=== PATIENT | female | born 1975 | race Caucasian/White ===

== ENCOUNTER 2016-07-23 11:31 | Emergency (ER) | payer OTHER ==
--- NOTE | 2016-07-23 12:44 | DIAGNOSTIC IMAGING REPORT ---
PROCEDURE: XR CHEST 2 VIEW INDICATION: COUGH TECHNIQUE: PA and lateral views. COMPARISON: CT abdomen and pelvis 05/03/1962 FINDINGS: The right middle lobe infiltrate. Left lung is clear. Heart and mediastinum are normal. Thorax is normal. IMPRESSION: 1. Right middle lobe infiltrate
--- NOTE | 2016-07-23 13:15 | ED ORDER SUMMARY ---
..... Patient: EDNA FARRAR OrderSheet [facility] VisitID: [id number] [place] [address] 41y, F Registration Date/Time: 07/23/2016 ORDER SHEET Weight: 24.9 kg (stated) Allergies: No Known Drug Allergy GENERAL ORDERS: Chest 2V Urgent (11:49 07/23/2016 Rafael LU) (Ack 11:54 LTapper) (12:14 SRoberts R.N.) Rapid Influenza Screen (Nasal Pharyngeal) (swab) Urgent (11:49 07/23/2016 Rafael LU) (Ack 11:54 LTapper) (13:04 SRoberts R.N.) MEDICATION ORDERS: Rocephin IM 2 gm (NOW) (13:10 07/23/2016 Rafael LU) (Ack 13:15 SRoberts R.N.) (13:41 SRoberts R.N.) Zithromax PO 500 mg (NOW) (13:10 07/23/2016 Rafael LU) (Ack 13:15 SRoberts R.N.) (13:40 SRoberts R.N.) Toradol IM 60 mg (NOW) (13:10 07/23/2016 Rafael LU) (Ack 13:15 SRoberts R.N.) (13:40 SRoberts R.N.) IV FLUIDS: ORDER SHEET NOTES: [Electronically signed by Opal Carranza R.N. (14:04 07/23/2016)] [Electronically signed by Latricia dOom MD (05:31 07/29/2016)] [Electronically locked/signed by Opal Carranza R.N. (14:04 07/23/2016)]
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
--- NOTE | 2016-07-23 13:15 | ED ORDER SUMMARY ---
..... Patient: EDNA FARRAR OrderSheet [facility] VisitID: [id number] [place] [address] 41y, F Registration Date/Time: 07/23/2016 ORDER SHEET Weight: 24.9 kg (stated) Allergies: No Known Drug Allergy GENERAL ORDERS: Chest 2V Urgent (11:49 07/23/2016 Rafael LU) (Ack 11:54 LTapper) (12:14 SRoberts R.N.) Rapid Influenza Screen (Nasal Pharyngeal) (swab) Urgent (11:49 07/23/2016 Rafael LU) (Ack 11:54 LTapper) (13:04 SRoberts R.N.) MEDICATION ORDERS: Rocephin IM 2 gm (NOW) (13:10 07/23/2016 Rafael LU) (Ack 13:15 SRoberts R.N.) (13:41 SRoberts R.N.) Zithromax PO 500 mg (NOW) (13:10 07/23/2016 Rafael LU) (Ack 13:15 SRoberts R.N.) (13:40 SRoberts R.N.) Toradol IM 60 mg (NOW) (13:10 07/23/2016 Rafael LU) (Ack 13:15 SRoberts R.N.) (13:40 SRoberts R.N.) IV FLUIDS: ORDER SHEET NOTES: [Electronically signed by Opal Carranza R.N. (14:04 07/23/2016)] [Electronically signed by Latricia Odom MD (05:31 07/29/2016)] [Electronically locked/signed by Opal Carranza R.N. (14:04 07/23/2016)]
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
--- NOTE | 2016-07-29 05:32 | ED MAR SUMMARY ---
..... Medication Administration Record [facility] [address] [place] [address] [place] [address] Patient: EDNA FARRAR Visit ID: [id number] 41y, F Weight: 24.9 kg Height/Length: 70 in BMI: 7.9 ALLERGIES: No Known Drug Allergy Given 13:07/23/2016 Opal Carranza R.N. Medication Administered: ZITHROMAX [PO], Dose: 500 mg PO. Medication Ordered: Zithromax PO 500 mg (NOW). Given 13:07/23/2016 Opal Carranza R.N. Medication Administered: TORADOL [IM] (KETOROLAC TROMETHAMINE), Dose: 60 mg IM. Medication Ordered: Toradol IM 60 mg (NOW). Given 13:07/23/2016 Opal Carranza R.NZhane Medication Administered: ROCEPHIN [IM] (CEFTRIAXONE SODIUM), Dose: 2 gm IM. Medication Ordered: Rocephin IM 2 gm (NOW).
--- NOTE | 2016-07-29 05:32 | ED MAR SUMMARY ---
..... Medication Administration Record [facility] [address] [place] [address] Patient: EDNA FARRAR Visit ID: [id number] 41y, F Weight: 24.9 kg Height/Length: 70 in BMI: 7.9 ALLERGIES: No Known Drug Allergy Given 13:07/23/2016 Opal Carranza R.N. Medication Administered: ZITHROMAX [PO], Dose: 500 mg PO. Medication Ordered: Zithromax PO 500 mg (NOW). Given 13:07/23/2016 Opal Carranza R.N. Medication Administered: TORADOL [IM] (KETOROLAC TROMETHAMINE), Dose: 60 mg IM. Medication Ordered: Toradol IM 60 mg (NOW). Given 13:07/23/2016 Opal Carranza R.NZhane Medication Administered: ROCEPHIN [IM] (CEFTRIAXONE SODIUM), Dose: 2 gm IM. Medication Ordered: Rocephin IM 2 gm (NOW).
--- NOTE | 2016-07-29 05:32 | ED DISCHARGE INSTRUCTIONS ---
Patient: EDNA FARRAR General Instructions [facility] VisitID: [id number] [place] [address] 41y, F Registration Date/Time: 07/23/2016 Bacterial pneumonia. Vital signs recorded and reviewed; empiric antibiotics given in the ED. No hypoxemia, respiratory failure or sepsis. Single contusion to the left posterior chest. INSTRUCTIONS Drink plenty of fluids. (Your influenza test is negative, but your chest x-ray shows a small area of pneumonia on the right. Your ribs are not broken.). Warnings: GENERAL WARNINGS: Return or contact your physician immediately if your condition worsens or changes unexpectedly, if not improving as expected, or if other problems arise. Your Current Medications: CONTINUE TAKING THE FOLLOWING MEDICATIONS: Citalopram Hydrobromide Oral : Tablet 40 mg. ClonazePAM Oral : Tablet 1 mg, 1 tablet 2x a day. Fluticasone Propionate Nasal : Suspension 50 mcg/act, 2 sprays. Gabapentin Oral : Capsule 400 mg, 1 capsule daily. LamoTRIgine Oral : Tablet Dispersible 200 mg, 1 tablet. TraZODone HCl Oral : Tablet 100 mg, 1 tablet daily. Prescription Medications: Hydrocodone/APAP 5mg / 325mg: take 1-2 orally every 6 hours as needed for pain. Dispense ten (10). No refill. Zithromax Z-Rodney: Take according to package instructions 2 orally today, followed by 1 orally every day for the next 4 days. Total course 5 days. No refills. Substitution is permissible. Follow-up: Follow up with your doctor as needed. Understanding of the discharge instructions verbalized by patient. ADDITIONAL INFORMATION Pneumonia (Adult) Pneumonia is an infection deep within the lung, in the small air sacs (alveoli). It may be due to a virus or bacteria and is usually treated with an antibiotic. Severe cases require treatment in the hospital. Milder cases can be treated at home. Symptoms usually start to improve during the first2 days of treatment. Home Care: Rest at home for the first 23 days or until you feel stronger. When resuming activity, dont let yourself become overly tired. Avoid exposure to cigarette smoke (yours or others). You may use acetaminophen (Tylenol) or ibuprofen (Motrin, Advil) to control fever or pain, unless another medicine was prescribed. [NOTE: If you have chronic liver or kidney disease or ever had a stomach ulcer or GI bleeding, talk with your doctor before using these medicines.] (Aspirin should never be used in anyone under 18 years of age who is ill with a fever. It may cause severe liver damage.) Your appetite may be poor so a light diet is fine. Keep well hydrated by drinking 68 glasses of fluids per day (water, sport drinks such as Gatorade, sodas without caffeine, juices, tea, soup, etc.). This will help loosen secretions in the lung, making it easier for you to cough up the phlegm (sputum). If you also have heart or kidney disease, check with your doctor before you drink extra amounts of fluids. Finish all antibiotic medicine prescribed, even if you are feeling better after a few days. Follow Up with your doctor in the next 23 days (or as advised) to be sure you are responding properly to the medicine. [NOTE: If you are age 65 or older, or if you have chronic lung disease (asthma, emphysema or COPD), we recommendthe pneumococcal vaccination and a yearlyinfluenzavaccination(flu-shot) every . Ask your doctor about this.] Get Prompt Medical Attention if any of the following occur: Not getting better within the first 48 hours of treatment Increasing shortness of breath or rapid breathing (over 25 breaths/minute) Coughing up blood or increasing chest pain with breathing Fever of 100.4F (38C) oral or higher, not better with fever medication Increasing weakness, dizziness or fainting Increasing thirst or dry mouth Sinus pain, headache or a stiff neck Chest pain not caused by coughing Chest Contusion Acontusion is a bruise to the skin, muscle or ribs. It may cause pain, tenderness, swelling and a purplish discoloration. Contusions take a few days to a few weeks to heal. Home Care: Rest. You should not be doing any heavy lifting or strenuous exertion, or any activity that causes pain. You may use acetaminophen (Tylenol) or ibuprofen (Motrin, Advil) to control pain, unless another pain medicine was prescribed. [ NOTE: If you have chronic liver or kidney disease or ever had a stomach ulcer or GI bleeding, talk with your doctor before using these medicines.] Follow Up with your doctor during the next week or as directed. Get Prompt Medical Attention if any of the following occur: Shortness of breath Increasing chest pain with breathing Dizziness, weakness or fainting New or worsening of abdominal pain Fever of 100.4F (38C) or higher, or as directed by your healthcare provider You have been given the following additional information: Pneumonia (Adult) Chest Wall Contusion (Electronically signed by Latricia Odom MD 07/29/2016 5:31)
--- NOTE | 2016-07-29 05:32 | ED MED RECONCILIATION SUMMARY ---
Patient: EDNA FARRAR Medication Reconciliation Report [facility] VisitID: [id number] [place] [address] 41y, F Registration Date/Time: 07/23/2016 Weight: 24.9 kg Height/Length: 70 in. BMI: 7.9 ALLERGIES: No Known Drug Allergy The patient's Home Medications are listed below: CONTINUE TAKING THE FOLLOWING MEDICATIONS: Citalopram Hydrobromide Oral (40 mg) ClonazePAM Oral (1 mg) 1 tablet, 2x a day Fluticasone Propionate Nasal (50 mcg/act) 2 sprays Gabapentin Oral (400 mg) 1 capsule, daily LamoTRIgine Oral (200 mg) 1 tablet TraZODone HCl Oral (100 mg) 1 tablet, daily The source(s) of the original Home Medication information: patient The following Medications were given to the patient in the Emergency Department: Zithromax [PO] PO 500 mg, administered: 07/23/2016 1:30:00 PM Toradol [IM] IM 60 mg, administered: 07/23/2016 1:30:00 PM Rocephin [IM] IM 2 gm, administered: 07/23/2016 1:36:00 PM The following Medications were prescribed to the patient: Hydrocodone/APAP 5mg / 325mg: take 1-2 orally every 6 hours as needed for pain. Dispense ten (10). No refill. -- Latricia Odom MD Zithromax Z-Rodney: Take according to package instructions 2 orally today, followed by 1 orally every day for the next 4 days. Total course 5 days. No refills. Substitution is permissible. -- Latricia Odom MD
--- NOTE | 2016-07-29 05:32 | ED MED RECONCILIATION SUMMARY ---
Patient: EDNA FARRAR Medication Reconciliation Report [facility] VisitID: [id number] [place] [address] 41y, F Registration Date/Time: 07/23/2016 Weight: 24.9 kg Height/Length: 70 in. BMI: 7.9 ALLERGIES: No Known Drug Allergy The patient's Home Medications are listed below: CONTINUE TAKING THE FOLLOWING MEDICATIONS: Citalopram Hydrobromide Oral (40 mg) ClonazePAM Oral (1 mg) 1 tablet, 2x a day Fluticasone Propionate Nasal (50 mcg/act) 2 sprays Gabapentin Oral (400 mg) 1 capsule, daily LamoTRIgine Oral (200 mg) 1 tablet TraZODone HCl Oral (100 mg) 1 tablet, daily The source(s) of the original Home Medication information: patient The following Medications were given to the patient in the Emergency Department: Zithromax [PO] PO 500 mg, administered: 07/23/2016 1:30:00 PM Toradol [IM] IM 60 mg, administered: 07/23/2016 1:30:00 PM Rocephin [IM] IM 2 gm, administered: 07/23/2016 1:36:00 PM The following Medications were prescribed to the patient: Hydrocodone/APAP 5mg / 325mg: take 1-2 orally every 6 hours as needed for pain. Dispense ten (10). No refill. -- Latricia Odom MD Zithromax Z-Rodney: Take according to package instructions 2 orally today, followed by 1 orally every day for the next 4 days. Total course 5 days. No refills. Substitution is permissible. -- Latricia Odom MD
== END 2016-07-23 13:35 | disposition home or self-care (01) ==
LOC: ED SRH 11:31
DX: J15.9 Unspecified bacterial pneumonia (principal); S20.212A Contusion of left front wall of thorax, initial encounter; X50.9XXA Other and unspecified overexertion or strenuous movements or postures, initial encounter; Y93.9 Activity, unspecified; Y92.9 Unspecified place or not applicable; Y99.9 Unspecified external cause status; Z79.899 Other long term (current) drug therapy
CPT/HCPCS: 91400

== ENCOUNTER 2016-09-04 14:38 | Emergency (ER) | payer OTHER ==
--- NOTE | 2016-09-04 16:50 | ED CLINICAL REPORT ---
Clinical Report - Physicians/Mid Levels [facility] [address] [place] [address] 09/04/2016 14:39 [id number] Time Seen: 15:10 Sep 04 2016. Arrived- By private vehicle. Historian- patient. HISTORY OF PRESENT ILLNESS Chief Complaint: ABDOMINAL PAIN. This started 7 days WARE TESTER and is still present. It is described as "pain" and it is described as located in the lower abdomen. No nausea, loss of appetite, vomiting or diarrhea. (patient reports abdominal pain at the site of her previous incision for hysterectomy and bilateral ovarian excision, patient reports no trauma. Denies any fevers or chills. NO diarrhea, no emesis. No urinary sx.). No recent travel. REVIEW OF SYSTEMS No constipation, black stools, hematemesis, difficulty with urination or pain with urination. No fever, headache, blurred vision or chills. All systems otherwise negative, except as recorded above. PAST HISTORY No history of bowel obstruction. Problems: Contusion. Pneumonia. Lumbar Strain. Urinary Incontinence. Fatigue. Low back pain associated with a spinal disorder other than radiculopathy or spinal stenosis. Chronic maxillary sinusitis. Alcohol Intoxication. Medical Screening Exam. Additional Surgeries: Breast Augmentation. Hysterectomy. Tonsillectomy. Medications: Zoloft Oral 25 mg, daily. ClonazePAM Oral (Tablet 1 mg) 1 tablet, 2x a day. Gabapentin Oral (Capsule 400 mg) 1 capsule, daily. TraZODone HCl Oral (Tablet 100 mg) 1 tablet, daily. Allergies: Codeine.(hives, itching). SOCIAL HISTORY Smoker- current status unknown. No alcohol use. ADDITIONAL NOTES The nursing notes have been reviewed. PHYSICAL EXAM Vital Signs: 09/04/2016 14:45 BP: 99/62. HR: 73. RR: 16. O2 saturation: 96%. Temp: 97.9 F. Pain level now: 8/10. Appearance: Alert. No acute distress. Eyes: Eyes normal inspection. No conjunctival findings or scleral icterus. ENT: Ears normal. Nose normal. Neck: Normal inspection. CVS: Normal heart rate and rhythm. Heart sounds normal. Respiratory: No respiratory distress. Breath sounds normal. No accessory muscle use or decreased air movement. Abdomen: Soft. Tenderness. No mass. Single scar present in the lower abdomen. Compatible with prior hysterectomy. The bowel sounds are not abnormal. No distention, mass present or guarding. Neuro: Oriented X 3. No motor deficit. LABS, X-RAYS, AND EKG Laboratory Tests: UA-Culture if indicated: (FRANCK: 09/04/2016 16:10) ( [facility] 09/04/2016 16:49) Final results Test Result Flag Units (Reference) URINE COLOR YELLOW URINE APPEARANCE CLEAR URINE GLUCOSE NEGATIVE (NEGATIVE) URINE BILIRUBIN NEGATIVE (NEGATIVE) URINE KETONE NEGATIVE (NEGATIVE) URINE SPECIFIC GRAVITY 1.015 (1.010-1.030) URINE PH 7.0 (5.0-8.0) URINE PROTEIN NEGATIVE (NEGATIVE) URINE UROBILINOGEN 0.2 EU/dL (0.2-1.0) URINE NITRITE NEGATIVE (NEGATIVE) URINE BLOOD NEGATIVE (NEGATIVE) URINE LEUK ESTERASE TRACE (NEGATIVE) URINE RBC NONE SEEN rbc/hpf (0-1) URINE WBC 3-5 wbc/hpf (0-1) URINE EPITHELIAL CELLS 3-5 EPI/hpf (0-5) URINE BACTERIA FEW (1+) (NONE SEEN) URINE COMMENT CULTURE INDICATED URINE CULTURES ARE SET-UP BASED ON THE FOLLOWING CRITERIA:POSITIVE NITRITEPOSITIVE LEUKOCYTE ESTERASEGREATER THAN 10 WHITE BLOOD CELLSMODERATE (2+) OR GREATER BACTERIA CBC w Diff: (FRANCK: 09/04/2016 15:16) ( [facility] [place] 09/04/2016 15:34) Final results Test Result Flag Units (Reference) WHITE BLOOD COUNT 6.5 K/uL (4.5-11.5) RED BLOOD COUNT 3.75 L M/uL (4.00-5.20) HEMOGLOBIN 12.1 gm/dL (12.0-16.0) HEMATOCRIT 36.2 % (36.0-46.0) MEAN CELL VOLUME 97 fL (80-100) MEAN CORPUSCULAR HGB 32 pg (26-34) MEAN CORPUSCULAR HGB CONC 34 g/dL (31-37) RED CELL DISTRIBUTION WIDTH 13.7 % (11.6-14.8) PLATELET COUNT 139 L K/uL (150-400) NEUTROPHIL % 58.3 % (50-75) LYMPH % 27.9 % (25-40) MONO % 5.5 % (3-14) EOSINOPHIL % 7.5 H % (0-4) BASOPHIL % 0.8 % (0-2) CMP: (FRANCK: 09/04/2016 15:16) ( [facility] 09/04/2016 16:01) Final results Test Result Flag Units (Reference) GLUCOSE 100 mg/dL (70-110) BUN 11 mg/dL (7-18) CREATININE 1.0 mg/dL (0.6-1.3) Estimated GFR >60 mL/min Estimated GFR- >60 mL/min Note: Persistent reduction over 3 months in eGFR<60 mL/min/1.73 m2 defines CKD. Patients with eGFR values>=60 mL/min/1.73 m2 may also have CKD if evidence ofpersistent proteinuria. Additional information may be foundat www.kidney.org. SODIUM 141 mmol/L (136-145) POTASSIUM 4.0 mmol/L (3.5-5.1) CHLORIDE 106 mmol/L (98-107) CARBON DIOXIDE 30 mmol/L (21-32) CALCIUM 8.6 mg/dL (8.5-10.1) TOTAL PROTEIN 5.9 L g/dL (6.4-8.2) ALBUMIN 3.4 g/dL (3.3-5.0) BILIRUBIN, TOTAL 0.2 mg/dL (0.0-1.0) ALKALINE PHOSPHATASE 74 U/L (46-116) AST (SGOT) 14 L U/L (15-37) ALT (SGPT) 18 U/L (12-78) . Note - Tests: (KUB: nad). PROGRESS AND PROCEDURES Course of Care: No emesis/ diarrhea. No signs of acute surgical abdomen. During the time in the ED, the following DDX were considered: acute surgical abdomen, hemodynamic or metabolic instability, dehydration, gastroenteritis-viral, food borne, or bacterial, food intolerance, irritable or inflammatory bowel, infection, sepsis. 09/04/2016 14:45 BP: 99/62. HR: 73. RR: 16. O2 saturation: 96%. Temp: 97.9 F. Pain level now: 8/10. Patient is stable. Symptoms better. Patient/family counseled. Differential Diagnosis: I considered gastritis, gastroenteritis, acute appendicitis, diverticulitis, small bowel obstruction, biliary colic, cholecystitis, hepatitis, splenic injury, splenic rupture, intraabdominal abscess, urinary tract infection, cystitis, ovarian cyst, pelvic inflammatory disease, pelvic abscess, abdominal aortic aneurysm, myocardial infarction and diabetic ketoacidosis as a possible cause of abdominal pain in this patient. This is a partial list of diagnoses considered. Disposition: Discharged. CLINICAL IMPRESSION Acute abdominal pain of unknown cause. INSTRUCTIONS Drink plenty of fluids. (please estabish PCP: [place] [address] ). Prescription Medications: Hydrocodone/APAP 5mg / 325mg: take 1 orally every 6 hours as needed for pain. Dispense ten (10). No refill. Follow-up with: Charlee Faustin MD, Family Practice, , [facility], [address] [place] [address] Follow up. Call for the next available appointment. (Electronically signed by Libby Dhillon P.A.-C 09/04/2016 17:20)
--- NOTE | 2016-09-04 16:50 | ED CLINICAL REPORT ---
Clinical Report - Physicians/Mid Levels [facility] [address] [place] [address] 09/04/2016 14:39 [id number] Time Seen: 15:10 Sep 04 2016. Arrived- By private vehicle. Historian- patient. HISTORY OF PRESENT ILLNESS Chief Complaint: ABDOMINAL PAIN. This started 7 days AGENT BROKER and is still present. It is described as "pain" and it is described as located in the lower abdomen. No nausea, loss of appetite, vomiting or diarrhea. (patient reports abdominal pain at the site of her previous incision for hysterectomy and bilateral ovarian excision, patient reports no trauma. Denies any fevers or chills. NO diarrhea, no emesis. No urinary sx.). No recent travel. REVIEW OF SYSTEMS No constipation, black stools, hematemesis, difficulty with urination or pain with urination. No fever, headache, blurred vision or chills. All systems otherwise negative, except as recorded above. PAST HISTORY No history of bowel obstruction. Problems: Contusion. Pneumonia. Lumbar Strain. Urinary Incontinence. Fatigue. Low back pain associated with a spinal disorder other than radiculopathy or spinal stenosis. Chronic maxillary sinusitis. Alcohol Intoxication. Medical Screening Exam. Additional Surgeries: Breast Augmentation. Hysterectomy. Tonsillectomy. Medications: Zoloft Oral 25 mg, daily. ClonazePAM Oral (Tablet 1 mg) 1 tablet, 2x a day. Gabapentin Oral (Capsule 400 mg) 1 capsule, daily. TraZODone HCl Oral (Tablet 100 mg) 1 tablet, daily. Allergies: Codeine.(hives, itching). SOCIAL HISTORY Smoker- current status unknown. No alcohol use. ADDITIONAL NOTES The nursing notes have been reviewed. PHYSICAL EXAM Vital Signs: 09/04/2016 14:45 BP: 99/62. HR: 73. RR: 16. O2 saturation: 96%. Temp: 97.9 F. Pain level now: 8/10. Appearance: Alert. No acute distress. Eyes: Eyes normal inspection. No conjunctival findings or scleral icterus. ENT: Ears normal. Nose normal. Neck: Normal inspection. CVS: Normal heart rate and rhythm. Heart sounds normal. Respiratory: No respiratory distress. Breath sounds normal. No accessory muscle use or decreased air movement. Abdomen: Soft. Tenderness. No mass. Single scar present in the lower abdomen. Compatible with prior hysterectomy. The bowel sounds are not abnormal. No distention, mass present or guarding. Neuro: Oriented X 3. No motor deficit. LABS, X-RAYS, AND EKG Laboratory Tests: UA-Culture if indicated: (FRANCK: 09/04/2016 16:10) ( [facility] [place] 09/04/2016 16:49) Final results Test Result Flag Units (Reference) URINE COLOR YELLOW URINE APPEARANCE CLEAR URINE GLUCOSE NEGATIVE (NEGATIVE) URINE BILIRUBIN NEGATIVE (NEGATIVE) URINE KETONE NEGATIVE (NEGATIVE) URINE SPECIFIC GRAVITY 1.015 (1.010-1.030) URINE PH 7.0 (5.0-8.0) URINE PROTEIN NEGATIVE (NEGATIVE) URINE UROBILINOGEN 0.2 EU/dL (0.2-1.0) URINE NITRITE NEGATIVE (NEGATIVE) URINE BLOOD NEGATIVE (NEGATIVE) URINE LEUK ESTERASE TRACE (NEGATIVE) URINE RBC NONE SEEN rbc/hpf (0-1) URINE WBC 3-5 wbc/hpf (0-1) URINE EPITHELIAL CELLS 3-5 EPI/hpf (0-5) URINE BACTERIA FEW (1+) (NONE SEEN) URINE COMMENT CULTURE INDICATED URINE CULTURES ARE SET-UP BASED ON THE FOLLOWING CRITERIA:POSITIVE NITRITEPOSITIVE LEUKOCYTE ESTERASEGREATER THAN 10 WHITE BLOOD CELLSMODERATE (2+) OR GREATER BACTERIA CBC w Diff: (FRANCK: 09/04/2016 15:16) ( [facility] [place] [place] 09/04/2016 15:34) Final results Test Result Flag Units (Reference) WHITE BLOOD COUNT 6.5 K/uL (4.5-11.5) RED BLOOD COUNT 3.75 L M/uL (4.00-5.20) HEMOGLOBIN 12.1 gm/dL (12.0-16.0) HEMATOCRIT 36.2 % (36.0-46.0) MEAN CELL VOLUME 97 fL (80-100) MEAN CORPUSCULAR HGB 32 pg (26-34) MEAN CORPUSCULAR HGB CONC 34 g/dL (31-37) RED CELL DISTRIBUTION WIDTH 13.7 % (11.6-14.8) PLATELET COUNT 139 L K/uL (150-400) NEUTROPHIL % 58.3 % (50-75) LYMPH % 27.9 % (25-40) MONO % 5.5 % (3-14) EOSINOPHIL % 7.5 H % (0-4) BASOPHIL % 0.8 % (0-2) CMP: (FRANCK: 09/04/2016 15:16) ( MsgRcvd 09/04/2016 16:01) Final results Test Result Flag Units (Reference) GLUCOSE 100 mg/dL (70-110) BUN 11 mg/dL (7-18) CREATININE 1.0 mg/dL (0.6-1.3) Estimated GFR >60 mL/min Estimated GFR- >60 mL/min Note: Persistent reduction over 3 months in eGFR<60 mL/min/1.73 m2 defines CKD. Patients with eGFR values>=60 mL/min/1.73 m2 may also have CKD if evidence ofpersistent proteinuria. Additional information may be foundat www.kidney.org. SODIUM 141 mmol/L (136-145) POTASSIUM 4.0 mmol/L (3.5-5.1) CHLORIDE 106 mmol/L (98-107) CARBON DIOXIDE 30 mmol/L (21-32) CALCIUM 8.6 mg/dL (8.5-10.1) TOTAL PROTEIN 5.9 L g/dL (6.4-8.2) ALBUMIN 3.4 g/dL (3.3-5.0) BILIRUBIN, TOTAL 0.2 mg/dL (0.0-1.0) ALKALINE PHOSPHATASE 74 U/L (46-116) AST (SGOT) 14 L U/L (15-37) ALT (SGPT) 18 U/L (12-78) . Note - Tests: (KUB: nad). PROGRESS AND PROCEDURES Course of Care: No emesis/ diarrhea. No signs of acute surgical abdomen. During the time in the ED, the following DDX were considered: acute surgical abdomen, hemodynamic or metabolic instability, dehydration, gastroenteritis-viral, food borne, or bacterial, food intolerance, irritable or inflammatory bowel, infection, sepsis. 09/04/2016 14:45 BP: 99/62. HR: 73. RR: 16. O2 saturation: 96%. Temp: 97.9 F. Pain level now: 8/10. Patient is stable. Symptoms better. Patient/family counseled. Differential Diagnosis: I considered gastritis, gastroenteritis, acute appendicitis, diverticulitis, small bowel obstruction, biliary colic, cholecystitis, hepatitis, splenic injury, splenic rupture, intraabdominal abscess, urinary tract infection, cystitis, ovarian cyst, pelvic inflammatory disease, pelvic abscess, abdominal aortic aneurysm, myocardial infarction and diabetic ketoacidosis as a possible cause of abdominal pain in this patient. This is a partial list of diagnoses considered. Disposition: Discharged. CLINICAL IMPRESSION Acute abdominal pain of unknown cause. INSTRUCTIONS Drink plenty of fluids. (please estabish PCP: [place] [address] ). Prescription Medications: Hydrocodone/APAP 5mg / 325mg: take 1 orally every 6 hours as needed for pain. Dispense ten (10). No refill. Follow-up with: Charlee Faustin MD, Family Practice, , [facility], [address] [place] [address] Follow up. Call for the next available appointment. (Electronically signed by Libby Dhillon P.A.-C 09/04/2016 17:20)
--- NOTE | 2016-09-04 16:50 | ED ORDER SUMMARY ---
..... Patient: EDNA FARRAR OrderSheet [facility] VisitID: [id number] [place] [address] 41y, F Registration Date/Time: 09/04/2016 ORDER SHEET Weight: 68.0 kg (stated) Allergies: Codeine GENERAL ORDERS: CBC w Diff Urgent (14:57 09/04/2016 EKoroleva P.A.-C) (Ack 15:04 LTapper) (15:20 JRomanelli R.N.) CMP Urgent (14:57 09/04/2016 EKoroleva P.A.-C) (Ack 15:04 LTapper) (15:20 JRomanelli R.N.) UA-Culture if indicated Urgent (14:57 09/04/2016 EKoroleva P.A.-C) (Ack 15:04 LTapper) (20:24 JRomanelli R.N.) Abdomen 1V Upright Urgent (16:29 09/04/2016 EKoroleva P.A.-C) (Ack 16:43 LTapper) (20:24 JRomanelli R.N.) MEDICATION ORDERS: Hydrocodone-APAP PO 5/325 mg (NOW, HIGH ALERT MEDICATION) (14:57 09/04/2016 EKoroleva P.A.-C) (15:20 JRomanelli R.N.) IV FLUIDS: ORDER SHEET NOTES: [Electronically signed by Libby DhillonAZhane-Ruddy (17:20 09/04/2016)] [Electronically signed by Matthew Rich R.N. (20:25 09/04/2016)] [Electronically locked/signed by Matthew Rich R.N. (20:25 09/04/2016)]
--- NOTE | 2016-09-04 16:50 | ED ORDER SUMMARY ---
..... Patient: EDNA FARRAR OrderSheet [facility] VisitID: [id number] [place] [address] 41y, F Registration Date/Time: 09/04/2016 ORDER SHEET Weight: 68.0 kg (stated) Allergies: Codeine GENERAL ORDERS: CBC w Diff Urgent (14:57 09/04/2016 EKoroleva P.A.-C) (Ack 15:04 LTapper) (15:20 JRomanelli R.N.) CMP Urgent (14:57 09/04/2016 EKoroleva P.A.-C) (Ack 15:04 LTapper) (15:20 JRomanelli R.N.) UA-Culture if indicated Urgent (14:57 09/04/2016 EKoroleva P.A.-C) (Ack 15:04 LTapper) (20:24 JRomanelli R.N.) Abdomen 1V Upright Urgent (16:29 09/04/2016 EKoroleva P.A.-C) (Ack 16:43 LTapper) (20:24 JRomanelli R.N.) MEDICATION ORDERS: Hydrocodone-APAP PO 5/325 mg (NOW, HIGH ALERT MEDICATION) (14:57 09/04/2016 EKoroleva P.A.-C) (15:20 JRomanelli R.N.) IV FLUIDS: ORDER SHEET NOTES: [Electronically signed by Libby DhillonAZhane-Ruddy (17:20 09/04/2016)] [Electronically signed by Matthew Rich R.N. (20:25 09/04/2016)] [Electronically locked/signed by Matthew Rich R.N. (20:25 09/04/2016)]
--- NOTE | 2016-09-04 16:50 | ED NURSING NOTES ---
Clinical Report - Nurses [facility] [address] [place] [address] 09/04/2016 14:39 Patient: EDNA FARRAR [facility]#: [id number] TRIAGE Triage time 14:45 Sep 04 2016. Acuity: LEVEL 3. Chief Complaint: ABDOMINAL PAIN. Alert. GERMAINE COMA SCORE: [place] Coma Scale: 15- eyes open spontaneously (4); best verbal response- oriented x 4 (5); best motor response- obeys commands (6). --15:29 Matthew Rich R.N. 14:45 09/04/16. BP: 99/62. HR: 73. RR: 16. O2 saturation: 96% on room air. Temp: 97.9 F. Pain level now: 8/10. Additional comments: Abdomen pain. --15:33 Matthew Rich R.N. Weight: 68 kg stated. Height/Length: 70 inches Per Patient. BMI: 21.5. --14:48 Matthew Rich R.N. Medications ClonazePAM Oral (Tablet 1 mg) 1 tablet, 2x a day. Gabapentin Oral (Capsule 400 mg) 1 capsule, daily. TraZODone HCl Oral (Tablet 100 mg) 1 tablet, daily. --14:51 Matthew Rich R.N. Zoloft Oral 25 mg, daily. --14:51 Matthew Rich R.N. Allergies Codeine.(hives, itching) --14:51 Matthew Rich R.N. History Arrived by private vehicle. Historian: patient. Accompanied by mother. Primary physician (none). ( Abdominal Pain underneath a surgical scar from an old Hysterectomy associated with nausea because of the pain.). Onset. (about 7 days ago). 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 Symptoms did not improve after treatment. --15:29 Matthew Rich R.N. PAST MEDICAL HX: Immunizations: status is unknown. The patient has had a hysterectomy. SOCIAL HX: Heavy tobacco smoker (cigarette)- 1 pack per day. No alcohol use or drug use. Recent travel. No infectious disease exposure. ABUSE ASSESSMENT: No report of abuse. FALL RISK ASSESSMENT: Fall risk assessment completed. No fall risk identified. NUTRITIONAL RISK ASSESSMENT: The nutritional risk assessment revealed no deficiencies. FUNCTIONAL ASSESSMENT: Functional assessment: no impairments noted. LEARNING NEEDS ASSESSMENT: The learning needs assessment revealed no barriers. SKIN INTEGRITY ASSESSMENT: Skin integrity risk assessment completed. No skin integrity risk identified. --15:34 Matthew Rich R.N. PROBLEMS: Contusion. Pneumonia. Lumbar Strain. Urinary Incontinence. Fatigue. Chronic maxillary sinusitis. Alcohol Intoxication. Medical Screening Exam. --14:52 Matthew Rich R.N. ADDITIONAL SURGERIES: Breast Augmentation. Hysterectomy. Tonsillectomy. --14:52 Matthew Rich R.N. Interventions ID band on patient. To treatment room. --15:29 Matthew Rich R.N. PHYSICAL ASSESSMENT Ambulatory to room. GENERAL / NEURO / PSYCH: Alert. Oriented X 4. HEENT: Mucous membranes are pink. RESPIRATORY: Respirations not labored. CVS: Cardiac rhythm: (RRR). Capillary refill less than 2 seconds. GI / : Abdomen soft. Abdominal tenderness in the suprapubic area. SKIN: Skin is warm and dry. --14:55 Matthew Rich R.N. NURSING PROGRESS NOTES Patient gowned. Reassurance given to the patient and parent(s). Patient identifiers checked. Call light placed in reach. Side rails up x 1. Bed placed in lowest position. Brakes of bed on. Patient ready for evaluation- chart flagged and ED physician notified. --14:55 Matthew Rich R.N. 15:15 09/04/2016 Hydrocodone-APAP (Hydrocodone-Acetaminophen) PO 5/325 mg Tablets 1 tab given. Allergies verified, confirmed 5 rights and sedative warning given to the patient and patient's family. --15:20 Matthew Rich R.N. 16:35 09/04/16. Patient ID band checked for patient name, birthdate and medical record number: patient confirmed. Instructions provided to collect clean catch urine and patient verbalized understanding. Clean catch urine collected with return of yellow-colored clear urine; odor is normal; sample sent to lab for urinalysis, culture and drug screen. Specimen labeled in the presence of the patient. --16:52 Matthew Rich R.N. <<SIAKEN ENTRY-- 15:00. ( Ice pack placed on pt's (R) foot). --16:54 Matthew Rich R.N. --END STRIKE>> Correction --16:58 Matthew Rich R.N. DISPOSITION / DISCHARGE Departure time: 1700. --20:15 Matthew Rich R.N. <<STRICKEN ENTRY-- 20:15 09/04/16. BP: 96/58. HR: 66. RR: 16. O2 saturation: 98% on room air. Temp: 98.2 F. Pain level now: 11/03. --20:19 Matthew Rich R.N. --END STRIKE>> Correction. --20:20 Matthew Rich R.N. --20:23 Matthew Rich R.N. 16:55 09/04/16. BP: 96/58. HR: 66. RR: 16. O2 saturation: 98% on room air. Temp: 98.2 F (oral). Pain level now: 11/03. Additional comments: Abdominal pain. --20:23 Matthew Rich R.N. 17:00. Condition at departure: improved. No learning barriers present. Discharge instructions provided and reviewed with the patient. Reviewed medication(s) (prescription given to pt). Reviewed referral to family practice for followup. Patient verbalized understanding. Written instructions provided in Japanese. The patient was discharged by the physician. She was discharged home and accompanied by parent. She left the Emergency Department ambulatory and via private vehicle. Parent driving. --20:24 Matthew Rich R.N. Locked/Released at 09/04/2016 20:25 by Matthew Rich R.N.
--- NOTE | 2016-09-04 19:59 | DIAGNOSTIC IMAGING REPORT ---
PROCEDURE: XR ABDOMEN 1 VIEW UPRIGHT INDICATION: ABDOMINAL PAIN TECHNIQUE: AP upright view. COMPARISON: None. FINDINGS: Normal bowel gas pattern. Mild residual stool. There is no free air, mass or suspicious calcification. Bones are unremarkable. IMPRESSION: 1. Nonspecific bowel gas pattern.
--- NOTE | 2016-09-04 20:25 | ED MAR SUMMARY ---
..... Medication Administration Record [facility] [address] [place] [address] Patient: EDNA FARRAR Visit ID: [id number] 41y, F Weight: 68.0 kg Height/Length: 70 in BMI: 21.5 ALLERGIES: Codeine Given 15:15 09/04/2016 Matthew Rich R.N. Medication Administered: HYDROCODONE-APAP [PO] (HYDROCODONE-ACETAMINOPHEN), Dose: 1 tab 5/325 mg Tablets PO. Medication Ordered: Hydrocodone-APAP PO 5/325 mg (NOW, HIGH ALERT MEDICATION).
--- NOTE | 2016-09-04 20:25 | ED MED RECONCILIATION SUMMARY ---
Patient: EDNA FARRAR Medication Reconciliation Report [facility] VisitID: [id number] [place] [address] 41y, F Registration Date/Time: 09/04/2016 Weight: 68.0 kg Height/Length: 70 in. BMI: 21.5 ALLERGIES: Codeine The patient's Home Medications are listed below: THE FOLLOWING MEDICATIONS NEED TO BE RECONCILED: ClonazePAM Oral (1 mg) 1 tablet, 2x a day Gabapentin Oral (400 mg) 1 capsule, daily TraZODone HCl Oral (100 mg) 1 tablet, daily Zoloft Oral 25 mg, daily The source(s) of the original Home Medication information: Not obtained. The following Medications were given to the patient in the Emergency Department: Hydrocodone-APAP [PO] PO 1 tab, administered: 09/04/2016 3:15:00 PM The following Medications were prescribed to the patient: Hydrocodone/APAP 5mg / 325mg: take 1 orally every 6 hours as needed for pain. Dispense ten (10). No refill. -- Libby Dhillon P.A.-C
--- NOTE | 2016-09-04 20:25 | ED DISCHARGE INSTRUCTIONS ---
Patient: EDNA FARRAR General Instructions Located [facility] VisitID: [id number] [address] [id number] 41y, F Registration Date/Time: 09/04/2016 Acute abdominal pain of unknown cause. INSTRUCTIONS Drink plenty of fluids. (please estabish PCP: [address] [place] [address] ). Prescription Medications: Hydrocodone/APAP 5mg / 325mg: take 1 orally every 6 hours as needed for pain. Dispense ten (10). No refill. Follow-up with: Charlee Faustin MD, [facility], , [facility], [address] [place] [address] Follow up. Call for the next available appointment. ADDITIONAL INFORMATION Symptoms With Uncertain Cause [Adult] Based on the exam and any tests that were performed today, the exact cause of your symptoms is not certain. While your condition does not seem serious, the signs of a serious problem may take more time to appear. Therefore, it is important for you to watch for any new symptoms or worsening of your condition.Follow up with your doctor or this facility, as directed.A repeat physical exam or additional testing at a later time may uncover a cause for your symptoms that is not evident today. Home Care: Resume your usual activities and diet when this feels comfortable to do so. Follow Up with your doctor, or as advised by our staff.Contact your doctor sooner if your symptoms do not begin to improve in the next few days. [NOTE: If you had an x-ray, CT scan, ultrasound, or ECG (electrocardiogram), it will be reviewed by a specialist. You will be notified of any new findings that may affect your care.] Get Prompt Medical Attention if any of the following occur: Current symptoms get worse New symptoms appear Hydrocodone Bitartrate, Acetaminophen Oral tablet What is this medicine? ACETAMINOPHEN; HYDROCODONE (a set a VANESSA aj fen; carli droe KOE done) is a pain reliever. It is used to treat mild to moderate pain. How should I use this medicine? Take this medicine by mouth. Swallow it with a full glass of water. Follow the directions on the prescription label. If the medicine upsets your stomach, take the medicine with food or milk. Do not take more than you are told to take. Talk to your designer regarding the use of this medicine in children. This medicine is not approved for use in children. What side effects may I notice from receiving this medicine? Side effects that you should report to your doctor or health manager care management as soon as possible: allergic reactions like skin rash, itching or hives, swelling of the face, lips, or tongue breathing problems confusion feeling faint or lightheaded, falls stomach pain yellowing of the eyes or skin Side effects that usually do not require medical attention (report to your doctor or health manager care management if they continue or are bothersome): nausea, vomiting stomach upset What may interact with this medicine? alcohol antihistamines isoniazid medicines for depression, anxiety, or psychotic disturbances medicines for sleep muscle relaxants naltrexone narcotic medicines (opiates) for pain phenobarbital ritonavir tramadol What if I miss a dose? If you miss a dose, take it as soon as you can. If it is almost time for your next dose, take only that dose. Do not take double or extra doses. Where should I keep my medicine? Keep out of the reach of children. This medicine can be abused. Keep your medicine in a safe place to protect it from theft. Do not share this medicine with anyone. Selling or giving away this medicine is dangerous and against the law. Store at room temperature between 15 and 30 degrees C (59 and 86 degrees F). Protect from light. Keep container tightly closed. Throw away any unused medicine after the expiration date. Discard unused medicine and used packaging carefully. Pets and children can be harmed if they find used or lost packages. What should I tell my health care provider before I take this medicine? They need to know if you have any of these conditions: brain tumor Crohn's disease, inflammatory bowel disease, or ulcerative colitis drink more than 3 alcohol-containing drinks per day drug abuse or addiction head injury heart or circulation problems kidney disease or problems going to the bathroom liver disease lung disease, asthma, or breathing problems an unusual or allergic reaction to acetaminophen, hydrocodone, other opioid analgesics, other medicines, foods, dyes, or preservatives or trying to get breast-feeding What should I watch for while using this medicine? Tell your doctor or health manager care management if your pain does not go away, if it gets worse, or if you have new or a different type of pain. You may develop tolerance to the medicine. Tolerance means that you will need a higher dose of the medicine for pain relief. Tolerance is normal and is expected if you take the medicine for a long time. Do not suddenly stop taking your medicine because you may develop a severe reaction. Your body becomes used to the medicine. This does NOT mean you are addicted. Addiction is a behavior related to getting and using a drug for a non-medical reason. If you have pain, you have a medical reason to take pain medicine. Your doctor will tell you how much medicine to take. If your doctor wants you to stop the medicine, the dose will be slowly lowered over time to avoid any side effects. You may get drowsy or dizzy when you first start taking the medicine or change doses. Do not drive, use machinery, or do anything that may be dangerous until you know how the medicine affects you. Stand or sit up slowly. There are different types of narcotic medicines (opiates) for pain. If you take more than one type at the same time, you may have more side effects. Give your health care provider a list of all medicines you use. Your doctor will tell you how much medicine to take. Do not take more medicine than directed. Call emergency for help if you have problems breathing. The medicine will cause constipation. Try to have a bowel movement at least every 2 to 3 days. If you do not have a bowel movement for 3 days, call your doctor or health manager care management. Too much acetaminophen can be very dangerous. Do not take Tylenol (acetaminophen) or medicines that contain acetaminophen with this medicine. Many non-prescription medicines contain acetaminophen. Always read the labels carefully. You have been given the following additional information: Symptoms With Uncertain Cause Hydrocodone Bitartrate, Acetaminophen Oral tablet (Electronically signed by Libby Dhillon P.A.-C 09/04/2016 17:20)
--- NOTE | 2016-09-04 20:25 | ED DISCHARGE INSTRUCTIONS ---
Patient: EDNA FARRAR General Instructions [facility] VisitID: [id number] [address] [id number] 41y, F Registration Date/Time: 09/04/2016 Acute abdominal pain of unknown cause. INSTRUCTIONS Drink plenty of fluids. (please estabish PCP: [address] [place] [address] ). Prescription Medications: Hydrocodone/APAP 5mg / 325mg: take 1 orally every 6 hours as needed for pain. Dispense ten (10). No refill. Follow-up with: Charlee Faustin MD, [facility], , [facility], [address] [place] [address] Follow up. Call for the next available appointment. ADDITIONAL INFORMATION Symptoms With Uncertain Cause [Adult] Based on the exam and any tests that were performed today, the exact cause of your symptoms is not certain. While your condition does not seem serious, the signs of a serious problem may take more time to appear. Therefore, it is important for you to watch for any new symptoms or worsening of your condition.Follow up with your doctor or this facility, as directed.A repeat physical exam or additional testing at a later time may uncover a cause for your symptoms that is not evident today. Home Care: Resume your usual activities and diet when this feels comfortable to do so. Follow Up with your doctor, or as advised by our staff.Contact your doctor sooner if your symptoms do not begin to improve in the next few days. [NOTE: If you had an x-ray, CT scan, ultrasound, or ECG (electrocardiogram), it will be reviewed by a specialist. You will be notified of any new findings that may affect your care.] Get Prompt Medical Attention if any of the following occur: Current symptoms get worse New symptoms appear Hydrocodone Bitartrate, Acetaminophen Oral tablet What is this medicine? ACETAMINOPHEN; HYDROCODONE (a set a VANESSA aj fen; carli droe KOE done) is a pain reliever. It is used to treat mild to moderate pain. How should I use this medicine? Take this medicine by mouth. Swallow it with a full glass of water. Follow the directions on the prescription label. If the medicine upsets your stomach, take the medicine with food or milk. Do not take more than you are told to take. Talk to your home paraprofessional regarding the use of this medicine in children. This medicine is not approved for use in children. What side effects may I notice from receiving this medicine? Side effects that you should report to your doctor or health administrator health care facility as soon as possible: allergic reactions like skin rash, itching or hives, swelling of the face, lips, or tongue breathing problems confusion feeling faint or lightheaded, falls stomach pain yellowing of the eyes or skin Side effects that usually do not require medical attention (report to your doctor or health administrator health care facility if they continue or are bothersome): nausea, vomiting stomach upset What may interact with this medicine? alcohol antihistamines isoniazid medicines for depression, anxiety, or psychotic disturbances medicines for sleep muscle relaxants naltrexone narcotic medicines (opiates) for pain phenobarbital ritonavir tramadol What if I miss a dose? If you miss a dose, take it as soon as you can. If it is almost time for your next dose, take only that dose. Do not take double or extra doses. Where should I keep my medicine? Keep out of the reach of children. This medicine can be abused. Keep your medicine in a safe place to protect it from theft. Do not share this medicine with anyone. Selling or giving away this medicine is dangerous and against the law. Store at room temperature between 15 and 30 degrees C (59 and 86 degrees F). Protect from light. Keep container tightly closed. Throw away any unused medicine after the expiration date. Discard unused medicine and used packaging carefully. Pets and children can be harmed if they find used or lost packages. What should I tell my health care provider before I take this medicine? They need to know if you have any of these conditions: brain tumor Crohn's disease, inflammatory bowel disease, or ulcerative colitis drink more than 3 alcohol-containing drinks per day drug abuse or addiction head injury heart or circulation problems kidney disease or problems going to the bathroom liver disease lung disease, asthma, or breathing problems an unusual or allergic reaction to acetaminophen, hydrocodone, other opioid analgesics, other medicines, foods, dyes, or preservatives or trying to get breast-feeding What should I watch for while using this medicine? Tell your doctor or health administrator health care facility if your pain does not go away, if it gets worse, or if you have new or a different type of pain. You may develop tolerance to the medicine. Tolerance means that you will need a higher dose of the medicine for pain relief. Tolerance is normal and is expected if you take the medicine for a long time. Do not suddenly stop taking your medicine because you may develop a severe reaction. Your body becomes used to the medicine. This does NOT mean you are addicted. Addiction is a behavior related to getting and using a drug for a non-medical reason. If you have pain, you have a medical reason to take pain medicine. Your doctor will tell you how much medicine to take. If your doctor wants you to stop the medicine, the dose will be slowly lowered over time to avoid any side effects. You may get drowsy or dizzy when you first start taking the medicine or change doses. Do not drive, use machinery, or do anything that may be dangerous until you know how the medicine affects you. Stand or sit up slowly. There are different types of narcotic medicines (opiates) for pain. If you take more than one type at the same time, you may have more side effects. Give your health care provider a list of all medicines you use. Your doctor will tell you how much medicine to take. Do not take more medicine than directed. Call emergency for help if you have problems breathing. The medicine will cause constipation. Try to have a bowel movement at least every 2 to 3 days. If you do not have a bowel movement for 3 days, call your doctor or health administrator health care facility. Too much acetaminophen can be very dangerous. Do not take Tylenol (acetaminophen) or medicines that contain acetaminophen with this medicine. Many non-prescription medicines contain acetaminophen. Always read the labels carefully. You have been given the following additional information: Symptoms With Uncertain Cause Hydrocodone Bitartrate, Acetaminophen Oral tablet (Electronically signed by Libby Dhillon P.A.-C 09/04/2016 17:20)
--- NOTE | 2016-09-04 20:25 | ED MED RECONCILIATION SUMMARY ---
Patient: EDNA FARRAR Medication Reconciliation Report [facility] VisitID: [id number] [place] [address] 41y, F Registration Date/Time: 09/04/2016 Weight: 68.0 kg Height/Length: 70 in. BMI: 21.5 ALLERGIES: Codeine The patient's Home Medications are listed below: THE FOLLOWING MEDICATIONS NEED TO BE RECONCILED: ClonazePAM Oral (1 mg) 1 tablet, 2x a day Gabapentin Oral (400 mg) 1 capsule, daily TraZODone HCl Oral (100 mg) 1 tablet, daily Zoloft Oral 25 mg, daily The source(s) of the original Home Medication information: Not obtained. The following Medications were given to the patient in the Emergency Department: Hydrocodone-APAP [PO] PO 1 tab, administered: 09/04/2016 3:15:00 PM The following Medications were prescribed to the patient: Hydrocodone/APAP 5mg / 325mg: take 1 orally every 6 hours as needed for pain. Dispense ten (10). No refill. -- Libby Dhillon P.A.-C
--- NOTE | 2016-09-04 20:25 | ED MAR SUMMARY ---
..... Medication Administration Record [facility] [address] [place] [address] Patient: EDNA FARRAR Visit ID: [id number] 41y, F Weight: 68.0 kg Height/Length: 70 in BMI: 21.5 ALLERGIES: Codeine Given 15:15 09/04/2016 Matthew Rich R.N. Medication Administered: HYDROCODONE-APAP [PO] (HYDROCODONE-ACETAMINOPHEN), Dose: 1 tab 5/325 mg Tablets PO. Medication Ordered: Hydrocodone-APAP PO 5/325 mg (NOW, HIGH ALERT MEDICATION).
== END 2016-09-04 17:00 | disposition home or self-care (01) ==
LOC: ED SRH 14:38
DX: R10.30 Lower abdominal pain, unspecified (principal); Z79.899 Other long term (current) drug therapy; Z79.891 Long term (current) use of opiate analgesic; Z88.5 Allergy status to narcotic agent
CPT/HCPCS: 90004; 90074; 90100; 90469; 95059

== ENCOUNTER 2016-09-17 13:34 | Emergency (ER) | payer OTHER ==
--- NOTE | 2016-09-17 15:14 | ED ORDER SUMMARY ---
..... Patient: EDNA FARRAR OrderSheet [facility] VisitID: [id number] [address] [place] [address] 41y, F Registration Date/Time: 09/17/2016 ORDER SHEET Weight: 65.7 kg (stated) Allergies: Codeine GENERAL ORDERS: CBC w Diff Urgent (14:19 09/17/2016 HBivens A.R.N.P.) (Ack 14:32 RKaruga) (14:37 SRoberts R.N.) CMP Urgent (14:19 09/17/2016 HBivens A.R.N.P.) (Ack 14:32 RKaruga) (14:37 SRoberts R.N.) UA-Culture if indicated Urgent (14:09/17/2016 HBivens A.R.N.P.) (Ack 14:32 RKaruga) (15:21 SRoberts R.N.) Amylase Urgent (14:19 09/17/2016 HBivens A.R.N.P.) (Ack 14:32 RKaruga) (14:37 SRoberts R.N.) Lipase Urgent (14:19 09/17/2016 HBivens A.R.N.P.) (Ack 14:32 RKaruga) (14:37 SRoberts R.N.) MEDICATION ORDERS: IV FLUIDS: Toradol IV 30 mg (NOW) (14:19 09/17/2016 HBivens A.R.N.P.) (Ack 14:20 SRoberts R.N.) (14:39 SRoberts R.N.) IV Saline Lock (14:09/17/2016 HBivens A.R.N.P.) (Ack 14:20 SRoberts R.N.) (14:38 SRoberts R.N.) Protonix IVP 40mg 40 mg (Mix in NS 10ml over 2min) (15:09/17/2016 HBivens A.R.N.P.) (15:21 SRoberts R.N.) ORDER SHEET NOTES: [Electronically signed by Cristina Grace A.R.N.P. (16:09 09/17/2016)] [Electronically signed by Opal Carranza R.N. (21:09/17/2016)] [Electronically locked/signed by Opal Carranza R.N. (:09/17/2016)]
--- NOTE | 2016-09-17 15:14 | ED NURSING NOTES ---
Clinical Report - Nurses [facility] [address] [place] [address] 09/17/2016 13:36 Patient: EDNA FARRAR [facility]#: [id number] TRIAGE Triage time 13:49. Acuity: LEVEL 3. Chief Complaint: MUSCLE ACHES, WEAKNESS, BLOODY STOOLS and RECTAL BLEED (Hx of abd pain.). Alert. No acute distress. SEPSIS SCREEN: Sepsis Screen: negative. Negative (no infection suspected/documented). LINDSEY COMA SCORE: Lindsey Coma Scale: 15- eyes open spontaneously (4); best verbal response- oriented x 4 (5); best motor response- obeys commands (6). --13:57 Opal Carranza R.N. 13:44 09/17/16. BP: 130/83. HR: 97. RR: 20. O2 saturation: 99% on room air. Temp: 98.7 F. Pain level now: 0/10. --13:57 Opal Carranza R.N. 13:44 09/17/16. BP: 130/83. HR: 97. RR: 20. O2 saturation: 99% on room air. Temp: 98.7 F. Pain level now: 0/10. --13:57 Opal Carranza R.N. Weight: 65.7 kg stated. Height/Length: 68 inches Per Patient. BMI: 22. --13:56 Opal Carranza R.N. Medications ClonazePAM Oral (Tablet 1 mg) 1 tablet, daily. Gabapentin Oral (Capsule 400 mg) 1 capsule, 4x a day. TraZODone HCl Oral (Tablet 100 mg) 1 tablet, daily. Zoloft Oral 25 mg, daily. --13:53 Opal Carranza R.N. Wellbutrin Oral 300mg day . --13:54 Opal Carranza R.N. Lamictal 200mg day . --13:54 Opal Carranza R.N. Ambien Oral 5 mg, at bedtime. --13:55 Opal Carranza R.N. Allergies Codeine.(hives, itching) --13:53 Opal Carranza R.N. Medication/allergy information source: the patient. --13:57 Opal Carranza R.N. History Arrived by private vehicle. Historian: patient. Accompanied by family. Primary physician ([facility]). This started today. She has had a cough. SOCIAL HX: Heavy tobacco smoker (cigarette)- less than 1 pack per day. Occasional alcohol use. No drug use. FALL RISK ASSESSMENT: Fall risk assessment completed. No fall risk identified. NUTRITIONAL RISK ASSESSMENT: The nutritional risk assessment revealed no deficiencies. FUNCTIONAL ASSESSMENT: Functional assessment: no impairments noted. LEARNING NEEDS ASSESSMENT: The learning needs assessment revealed no barriers. SKIN INTEGRITY ASSESSMENT: Skin integrity risk assessment completed. No skin integrity risk identified. --13:57 Opal Carranza R.N. PROBLEMS: Abdominal Pain. Recent Travel. Contusion. Pneumonia. Lumbar Strain. Urinary Incontinence. Fatigue. Low back pain associated with a spinal disorder other than radiculopathy or spinal stenosis. Chronic maxillary sinusitis. Alcohol Intoxication. Medical Screening Exam. --14:11 Opal Carranza R.N. ADDITIONAL SURGERIES: Breast Augmentation. Hysterectomy. Tonsillectomy. --14:11 Opal Carranza R.N. Interventions ID band on patient. To room. --13:57 Opal Carranza R.N. PHYSICAL ASSESSMENT Ambulatory to room. Patient gowned. GENERAL / NEURO / PSYCH: Alert. Oriented X 4. Appears in no acute distress. Appears anxious. HEENT: Mucous membranes are pink. RESPIRATORY: Respirations not labored. CVS: Capillary refill less than 2 seconds. GI / : Abdomen nontender. SKIN: Skin intact. Skin is warm and dry. Normal skin turgor. --13:58 Opal Carranza R.N. NURSING PROGRESS NOTES Patient gowned. Head of bed elevated. Two patient identifiers checked. Call light placed in reach. Side rails up x 2. Bed placed in lowest position. Brakes of bed on. Patient ready for evaluation. --13:58 Opal Carranza R.N. 14:28 09/17/2016 Site #1 started via IV in the right antecubital space with an 20g angiocath, with aseptic technique and good blood return; one attempt. Blood drawn: rainbow set. Labeled in the presence of the patient. Saline lock flushed with 10 mL saline. --14:38 Opal Carranza R.N. 14:39 09/17/2016 Toradol IVP 30 mg given over 1 minute(s) via site #1. Allergies verified and confirmed 5 rights. IV patency established. IV site checked: no pain, redness, or swelling. IV flushed thoroughly pre- and post-medication administration. IVP given by RN. --14:39 Opal Carranza R.N. 15:21 09/17/2016 PROTONIX (Pantoprazole Sodium) IVP 40 mg given over 2 minute(s) via site #1. IV patency established. IV site checked: no pain, redness, or swelling. IV flushed thoroughly pre- and post-medication administration. --15:21 Opal Carranza R.N. DISPOSITION / DISCHARGE 15:50. Condition at departure: improved. No learning barriers present. Discharge instructions provided and reviewed with the patient. Reviewed medication(s) side effects, precautions, dosing and course information. Prescription(s) given to the patient. Patient verbalized understanding. Written instructions provided in British. The patient was discharged home and accompanied by family. She left the Emergency Department ambulatory and via private vehicle. Family member driving. Medication list reviewed and validated. --15:58 Opal Carranza R.N. 15:50 09/17/16. BP: 111/64. HR: 71. RR: 20. O2 saturation: 98%. Temp: 98.7 F. Pain level now: 07/06. 14:45 09/17/16. BP: 116/62. HR: 79. RR: 20. O2 saturation: 97%. Temp: 98.6 F. Pain level now: 08/06. 13:44 09/17/16. BP: 130/83. HR: 97. RR: 20. O2 saturation: 99% on room air. Temp: 98.7 F. Pain level now: 010. --15:58 Opal Carranza R.N. Locked/Released at 09/17/2016 21:10 by Opal Carranza R.N.
--- NOTE | 2016-09-17 15:14 | ED ORDER SUMMARY ---
..... Patient: EDNA FARRAR OrderSheet [facility] VisitID: [id number] [address] [place] [address] 41y, F Registration Date/Time: 09/17/2016 ORDER SHEET Weight: 65.7 kg (stated) Allergies: Codeine GENERAL ORDERS: CBC w Diff Urgent (14:19 09/17/2016 HBivens A.R.N.P.) (Ack 14:32 RKaruga) (14:37 SRoberts R.N.) CMP Urgent (14:19 09/17/2016 HBivens A.R.N.P.) (Ack 14:32 RKaruga) (14:37 SRoberts R.N.) UA-Culture if indicated Urgent (14:09/17/2016 HBivens A.R.N.P.) (Ack 14:32 RKaruga) (15:21 SRoberts R.N.) Amylase Urgent (14:19 09/17/2016 HBivens A.R.N.P.) (Ack 14:32 RKaruga) (14:37 SRoberts R.N.) Lipase Urgent (14:19 09/17/2016 HBivens A.R.N.P.) (Ack 14:32 RKaruga) (14:37 SRoberts R.N.) MEDICATION ORDERS: IV FLUIDS: Toradol IV 30 mg (NOW) (14:19 09/17/2016 HBivens A.R.N.P.) (Ack 14:20 SRoberts R.N.) (14:39 SRoberts R.N.) IV Saline Lock (14:09/17/2016 HBivens A.R.N.P.) (Ack 14:20 SRoberts R.N.) (14:38 SRoberts R.N.) Protonix IVP 40mg 40 mg (Mix in NS 10ml over 2min) (15:09/17/2016 HBivens A.R.N.P.) (15:21 SRoberts R.N.) ORDER SHEET NOTES: [Electronically signed by Cristina Grace A.R.N.P. (16:09 09/17/2016)] [Electronically signed by Opal Carranza R.N. (21:09/17/2016)] [Electronically locked/signed by Opal Carranza R.N. (:09/17/2016)]
--- NOTE | 2016-09-17 15:14 | ED CLINICAL REPORT ---
Clinical Report - Physicians/Mid Levels [facility] [address] [place] [address] 09/17/2016 13:36 Patient: EDNA FARRAR [facility]#: [id number] Time Seen: 14:08; initial patient contact, initial documentation, patient care assumed. Arrived- By private vehicle. Historian- patient and mother. HISTORY OF PRESENT ILLNESS Chief Complaint: RECTAL BLEEDING. This started about 3 weeks ago, has been moderate and is still present (today). It was abrupt in onset and has been intermittent. The patient has had rectal bleeding described as blood mixed with stool and streaks on stool and moderate, crampy, intermittent abdominal pain but not had dark stools, rectal pain or hard stools. No constipation, nausea, vomiting or diarrhea. No recent travel. No known contact with a sick individual. Similar symptoms previously: Once, as bad. ( saw blood about 3 weeks ago, it stopped and she saw it again today). Recent medical care: The patient was seen recently in the office. ( says she thought bleeding was coming from vagina so went to her gyne and had exam and pap smear done, and then found out blood was from the other end). REVIEW OF SYSTEMS No dizziness, fainting episodes, weakness, abnormal bleeding or vaginal discharge. No fever, difficulty breathing, chest pain or hematuria. No complaint of rectal foreign body. She has had no rectal intercourse. All systems otherwise negative, except as recorded above. PAST HISTORY See nurses notes. PROBLEMS: Abdominal Pain. Recent Travel. Contusion. Pneumonia. Lumbar Strain. Urinary Incontinence. Fatigue. Low back pain associated with a spinal disorder other than radiculopathy or spinal stenosis. Chronic maxillary sinusitis. Alcohol Intoxication. Medical Screening Exam. --14:11 Opal Carranza R.N. SOCIAL HISTORY Heavy tobacco smoker. Occasional alcohol use. No drug use. Not a homosexual. No recent travel. Is a local resident. FAMILY HISTORY Negative. ADDITIONAL NOTES The nursing notes have been reviewed with agreement regarding the chief complaint, HPI, ROS, PMH and patient medications and allergies. PHYSICAL EXAM Vital Signs: 09/17/2016 13:44 BP: 130/83. HR: 97. RR: 20. O2 saturation: 99%. Temp: 98.7 F. Pain level now: 0/10. Have been reviewed as normal and appear to be correct. Appearance: Alert. Oriented X3. No acute distress. Anxious. Eyes: Pupils equal, round and reactive to light. Eyes normal inspection. Neck: Normal inspection. Neck supple. CVS: Normal heart rate and rhythm. Heart sounds normal. Pulses normal. Respiratory: No respiratory distress. Breath sounds normal. Abdomen: Soft and nontender. Bowel sounds normal. No organomegaly. No mass. Back: Normal inspection. Rectal: Abnormal rectal exam. Hemorrhoids (external). No inflamed external hemorrhoids, thrombosed external hemorrhoids, bleeding external hemorrhoids, ruptured external hemorrhoids or internal hemorrhoids. Rectal exam nontender. Stool color normal. Stool heme negative; hemoccult assistant quality manager check passed. (POC test reference range: negative). Skin: Skin warm and dry. Normal skin color. No rash. Normal skin turgor. Extremities: Extremities exhibit normal ROM. No lower extremity edema. Neuro: Oriented X 3. No motor deficit. No sensory deficit. LABS, X-RAYS, AND EKG Laboratory Tests: CBC w Diff: (FRANCK: 09/17/2016 14:30) ( MsgRcvd 09/17/2016 14:47) Final results Test Result Flag Units (Reference) WHITE BLOOD COUNT 10.7 K/uL (4.5-11.5) RED BLOOD COUNT 4.70 M/uL (4.00-5.20) HEMOGLOBIN 14.9 gm/dL (12.0-16.0) HEMATOCRIT 45.0 % (36.0-46.0) MEAN CELL VOLUME 96 fL (80-100) MEAN CORPUSCULAR HGB 32 pg (26-34) MEAN CORPUSCULAR HGB CONC 33 g/dL (31-37) RED CELL DISTRIBUTION WIDTH 14.0 % (11.6-14.8) PLATELET COUNT 200 K/uL (150-400) NEUTROPHIL % 66.0 % (50-75) LYMPH % 21.9 L % (25-40) MONO % 8.0 % (3-14) EOSINOPHIL % 3.7 % (0-4) BASOPHIL % 0.4 % (0-2) CMP: (FRANCK: 09/17/2016 14:30) ( MsgRcvd 09/17/2016 14:58) Final results Test Result Flag Units (Reference) GLUCOSE 64 L mg/dL (70-110) BUN 14 mg/dL (7-18) CREATININE 1.1 mg/dL (0.6-1.3) Estimated GFR 57.62 mL/min Estimated GFR- >60 mL/min Note: Persistent reduction over 3 months in eGFR<60 mL/min/1.73 m2 defines CKD. Patients with eGFR values>=60 mL/min/1.73 m2 may also have CKD if evidence ofpersistent proteinuria. Additional information may be foundat www.[email or web address].org. SODIUM 142 mmol/L (136-145) POTASSIUM 3.7 mmol/L (3.5-5.1) CHLORIDE 106 mmol/L (98-107) CARBON DIOXIDE 27 mmol/L (21-32) CALCIUM 9.3 mg/dL (8.5-10.1) TOTAL PROTEIN 7.4 g/dL (6.4-8.2) ALBUMIN 4.2 g/dL (3.3-5.0) BILIRUBIN, TOTAL 0.3 mg/dL (0.0-1.0) ALKALINE PHOSPHATASE 93 U/L (46-116) AST (SGOT) 16 U/L (15-37) ALT (SGPT) 22 U/L (12-78) LIPASE 272 U/L (73-393) AMYLASE 58 U/L (25-115) . PROGRESS AND PROCEDURES Patient counseled in person regarding the patient's stable condition, test results and diagnosis. 15:06. Differential Diagnosis: I considered gastritis, gastroenteritis, peptic ulcer disease, gastroesophageal reflux disease, esophagitis, esophageal varices, Leana-Mccullough tear of the esophagus, ischemia of bowel, colitis, diverticular disease, intestinal tumor, intestinal polyps, colon cancer, ulcerative colitis, Crohn's disease, rectal tumor, rectal ulcer, hemorrhoids, anal fissure, NSAIDS use, ETOH use and cancer as a possible cause of GI bleed in this patient. This is a partial list of diagnoses considered. Above considerations are based on history, physical exam, reassessment and laboratory data. Differential diagnosis was discussed with patient. Disposition: Discharged home in good and improved condition (15:14). Condition: good and stable. CLINICAL IMPRESSION Rectal bleed consisting of bright red blood. INSTRUCTIONS Warnings: GENERAL WARNINGS: Return or contact your physician immediately if your condition worsens or changes unexpectedly, if not improving as expected, or if other problems arise. Specifically return if problem worsens. Prescription Medications: Zofran 4 mg: Take 1 orally every six hours as needed for nausea/vomiting. Dispense ten (10). No refills. Substitution is permissible. Bentyl 20 mg tablets: take 1 orally every 6 hours as needed. Dispense thirty (30). No refills. Substitution is permissible. Protonix 40 mg tablets: Take 1 tablet orally once daily. Dispense thirty (30). No refills. Substitution is permissible. Follow-up: Follow up with your doctor in about two days even if well. Call for an appointment. Summary of care provided to patient. Understanding of the discharge instructions verbalized by patient. Follow-up with: Goldy White MD, [facility], , [address], [address], [place], [phone] Follow up in about two days as needed. Call for an appointment. Summary of care provided to patient. (Electronically signed by Cristina Grace A.R.N.P. 09/17/2016 16:09)
--- NOTE | 2016-09-17 15:14 | ED CLINICAL REPORT ---
Clinical Report - Physicians/Mid Levels [facility] [address] [place] [address] 09/17/2016 13:36 [id number] Time Seen: 14:08; initial patient contact, initial documentation, patient care assumed. Arrived- By private vehicle. Historian- patient and mother. HISTORY OF PRESENT ILLNESS Chief Complaint: RECTAL BLEEDING. This started about 3 weeks ago, has been moderate and is still present (today). It was abrupt in onset and has been intermittent. The patient has had rectal bleeding described as blood mixed with stool and streaks on stool and moderate, crampy, intermittent abdominal pain but not had dark stools, rectal pain or hard stools. No constipation, nausea, vomiting or diarrhea. No recent travel. No known contact with a sick individual. Similar symptoms previously: Once, as bad. ( saw blood about 3 weeks ago, it stopped and she saw it again today). Recent medical care: The patient was seen recently in the office. ( says she thought bleeding was coming from vagina so went to her gyne and had exam and pap smear done, and then found out blood was from the other end). REVIEW OF SYSTEMS No dizziness, fainting episodes, weakness, abnormal bleeding or vaginal discharge. No fever, difficulty breathing, chest pain or hematuria. No complaint of rectal foreign body. She has had no rectal intercourse. All systems otherwise negative, except as recorded above. PAST HISTORY See nurses notes. PROBLEMS: Abdominal Pain. Recent Travel. Contusion. Pneumonia. Lumbar Strain. Urinary Incontinence. Fatigue. Low back pain associated with a spinal disorder other than radiculopathy or spinal stenosis. Chronic maxillary sinusitis. Alcohol Intoxication. Medical Screening Exam. --14:11 Opal Carranza R.N. SOCIAL HISTORY Heavy tobacco smoker. Occasional alcohol use. No drug use. Not a homosexual. No recent travel. Is a local resident. FAMILY HISTORY Negative. ADDITIONAL NOTES The nursing notes have been reviewed with agreement regarding the chief complaint, HPI, ROS, PMH and patient medications and allergies. PHYSICAL EXAM Vital Signs: 09/17/2016 13:44 BP: 130/83. HR: 97. RR: 20. O2 saturation: 99%. Temp: 98.7 F. Pain level now: 0/10. Have been reviewed as normal and appear to be correct. Appearance: Alert. Oriented X3. No acute distress. Anxious. Eyes: Pupils equal, round and reactive to light. Eyes normal inspection. Neck: Normal inspection. Neck supple. CVS: Normal heart rate and rhythm. Heart sounds normal. Pulses normal. Respiratory: No respiratory distress. Breath sounds normal. Abdomen: Soft and nontender. Bowel sounds normal. No organomegaly. No mass. Back: Normal inspection. Rectal: Abnormal rectal exam. Hemorrhoids (external). No inflamed external hemorrhoids, thrombosed external hemorrhoids, bleeding external hemorrhoids, ruptured external hemorrhoids or internal hemorrhoids. Rectal exam nontender. Stool color normal. Stool heme negative; hemoccult quality assurance coach check passed. (POC test reference range: negative). Skin: Skin warm and dry. Normal skin color. No rash. Normal skin turgor. Extremities: Extremities exhibit normal ROM. No lower extremity edema. Neuro: Oriented X 3. No motor deficit. No sensory deficit. LABS, X-RAYS, AND EKG Laboratory Tests: CBC w Diff: (FRANCK: 09/17/2016 14:30) ( MsgRcvd 09/17/2016 14:47) Final results Test Result Flag Units (Reference) WHITE BLOOD COUNT 10.7 K/uL (4.5-11.5) RED BLOOD COUNT 4.70 M/uL (4.00-5.20) HEMOGLOBIN 14.9 gm/dL (12.0-16.0) HEMATOCRIT 45.0 % (36.0-46.0) MEAN CELL VOLUME 96 fL (80-100) MEAN CORPUSCULAR HGB 32 pg (26-34) MEAN CORPUSCULAR HGB CONC 33 g/dL (31-37) RED CELL DISTRIBUTION WIDTH 14.0 % (11.6-14.8) PLATELET COUNT 200 K/uL (150-400) NEUTROPHIL % 66.0 % (50-75) LYMPH % 21.9 L % (25-40) MONO % 8.0 % (3-14) EOSINOPHIL % 3.7 % (0-4) BASOPHIL % 0.4 % (0-2) CMP: (FRANCK: 09/17/2016 14:30) ( MsgRcvd 09/17/2016 14:58) Final results Test Result Flag Units (Reference) GLUCOSE 64 L mg/dL (70-110) BUN 14 mg/dL (7-18) CREATININE 1.1 mg/dL (0.6-1.3) Estimated GFR 57.62 mL/min Estimated GFR- >60 mL/min Note: Persistent reduction over 3 months in eGFR<60 mL/min/1.73 m2 defines CKD. Patients with eGFR values>=60 mL/min/1.73 m2 may also have CKD if evidence ofpersistent proteinuria. Additional information may be foundat www.[email or web address]. SODIUM 142 mmol/L (136-145) POTASSIUM 3.7 mmol/L (3.5-5.1) CHLORIDE 106 mmol/L (98-107) CARBON DIOXIDE 27 mmol/L (21-32) CALCIUM 9.3 mg/dL (8.5-10.1) TOTAL PROTEIN 7.4 g/dL (6.4-8.2) ALBUMIN 4.2 g/dL (3.3-5.0) BILIRUBIN, TOTAL 0.3 mg/dL (0.0-1.0) ALKALINE PHOSPHATASE 93 U/L (46-116) AST (SGOT) 16 U/L (15-37) ALT (SGPT) 22 U/L (12-78) LIPASE 272 U/L (73-393) AMYLASE 58 U/L (25-115) . PROGRESS AND PROCEDURES Patient counseled in person regarding the patient's stable condition, test results and diagnosis. 15:06. Differential Diagnosis: I considered gastritis, gastroenteritis, peptic ulcer disease, gastroesophageal reflux disease, esophagitis, esophageal varices, Leana-Mccullough tear of the esophagus, ischemia of bowel, colitis, diverticular disease, intestinal tumor, intestinal polyps, colon cancer, ulcerative colitis, Crohn's disease, rectal tumor, rectal ulcer, hemorrhoids, anal fissure, NSAIDS use, ETOH use and cancer as a possible cause of GI bleed in this patient. This is a partial list of diagnoses considered. Above considerations are based on history, physical exam, reassessment and laboratory data. Differential diagnosis was discussed with patient. Disposition: Discharged home in good and improved condition (15:14). Condition: good and stable. CLINICAL IMPRESSION Rectal bleed consisting of bright red blood. INSTRUCTIONS Warnings: GENERAL WARNINGS: Return or contact your physician immediately if your condition worsens or changes unexpectedly, if not improving as expected, or if other problems arise. Specifically return if problem worsens. Prescription Medications: Zofran 4 mg: Take 1 orally every six hours as needed for nausea/vomiting. Dispense ten (10). No refills. Substitution is permissible. Bentyl 20 mg tablets: take 1 orally every 6 hours as needed. Dispense thirty (30). No refills. Substitution is permissible. Protonix 40 mg tablets: Take 1 tablet orally once daily. Dispense thirty (30). No refills. Substitution is permissible. Follow-up: Follow up with your doctor in about two days even if well. Call for an appointment. Summary of care provided to patient. Understanding of the discharge instructions verbalized by patient. Follow-up with: Goldy White MD, [facility], , [address], [address], [place], [phone] Follow up in about two days as needed. Call for an appointment. Summary of care provided to patient. (Electronically signed by Cristina Grace A.R.N.P. 09/17/2016 16:09)
--- NOTE | 2016-09-17 21:11 | ED DISCHARGE INSTRUCTIONS ---
Patient: EDNA FARRAR General Instructions [facility] VisitID: [id number] [address] [place] [address] 41y, F Registration Date/Time: 09/17/2016 Rectal bleed consisting of bright red blood. INSTRUCTIONS Warnings: GENERAL WARNINGS: Return or contact your physician immediately if your condition worsens or changes unexpectedly, if not improving as expected, or if other problems arise. Specifically return if problem worsens. Prescription Medications: Zofran 4 mg: Take 1 orally every six hours as needed for nausea/vomiting. Dispense ten (10). No refills. Substitution is permissible. Bentyl 20 mg tablets: take 1 orally every 6 hours as needed. Dispense thirty (30). No refills. Substitution is permissible. Protonix 40 mg tablets: Take 1 tablet orally once daily. Dispense thirty (30). No refills. Substitution is permissible. Follow-up: Follow up with your doctor in about two days even if well. Call for an appointment. Summary of care provided to patient. Understanding of the discharge instructions verbalized by patient. Follow-up with: Goldy White MD, [facility], , [address], [place], [id number] Follow up in about two days as needed. Call for an appointment. Summary of care provided to patient. ADDITIONAL INFORMATION Rectal Bleeding (Stable) Your exam today shows signs of blood in the stool. This is called rectal bleeding, because the blood passes through the rectum. However, the blood may not be coming from the rectum. Blood in the stool may be red or black in color. Red blood in the stool usually comes from the lower gastro-intestinal (GI) tract. This may be due to diverticulosis, polyps, colon inflammation or infection, anal fissure or hemorrhoids. In persons over 50 tumors and cancer of the intestinal tract may first show up as red blood in the stool. Upper GI bleeding causes the stool to turn black. This may occur with bleeding from the esophagus, stomach, duodenum or small intestine. Very small amounts of GI bleeding may not be visible and can only be discovered on a chemical test of the stool. You have not lost a large amount of blood and your condition appears stable at this time. It is very important to have a follow-up exam to determine the exact cause of your bleeding. Home Care: 1) You may resume normal activity as long as you feel well. 2) Avoid aspirin and anti-inflammatory drugs such as ibuprofen (Advil, Motrin) and naproxen (Aleve and Naprosyn). You may use acetaminophen (Tylenol) for pain. [ NOTE : If you have chronic liver disease, talk with your doctor before using acetaminophen.] 3) Avoid alcohol. Follow Up with your doctor or as advised by our medical staff. It is very important that you have further tests done to find the cause of your bleeding. Get Prompt Medical Attention if any of the following occur: -- Large amount of rectal bleeding (more than 1 cup of blood in 24 hours) -- Increasing abdominal pain -- Weakness, dizziness or fainting -- Vomiting blood (red or black color) Hemorrhoids,External A hemorrhoid is a local swelling of the veins around the rectum. These most often occur from repeated forceful straining during bowel movements or heavy lifting. It may also occur in the last few months of . A hemorrhoid feels like a soft lump. It may itch from time to time. When it is inflamed it becomes hard and very painful. Home Care: SITZ BATHS: Sit in a tub filled with about 6 inches of hot water. Allow the water to run in order to keep it hot for a total of 10-15 minutes. Repeat this three times a day until pain is relieved. Keep your stools soft to avoid the need to strain when having a bowel movement. Unless another medicine was prescribed, try the following: IF YOU ARE CONSTIPATED: You may use flco-beb-cubxksv laxatives such as MILK OF MAGNESIA (mild acting) or, DULCOLAX (if stronger action is needed). IF YOU ARE NOT CONSTIPATED but stools are hard, try taking Colace (docusate sodium) which is a stool softener. This will soften stools without producing diarrhea. Drinking extra fluids may also help. The use of creams applied to the hemorrhoid itself, such as ANUSOL or PREPARATION H, will be helpful to reduce pain and itching, and speed healing. Prevention: Avoid straining on the toilet by keeping stools soft. Increasing FIBER in your diet (fruits, cereals, vegetables and grains) will promote healthy bowel movement. If this is not working, you may use METAMUCIL and similar products. These are mbyi-xoj-lanokup fiber supplements. You must drink extra fluids when taking these to avoid constipation. Follow Up with your doctor if you do not begin to respond to the above treatment within the next few days. Get Prompt Medical Attention if any of the following occur: Large amount of rectal bleeding (more than 1 cup of blood in 24 hours) Increasing rectal pain or rectal pain that continues for more than three days of treatment Weakness, dizziness or fainting Vomiting blood (red or black color) Ondansetron Oral disintegrating tablet What is this medicine? ONDANSETRON (on ADIN se sara) is used to treat nausea and vomiting caused by chemotherapy. It is also used to prevent or treat nausea and vomiting after surgery. How should I use this medicine? These tablets are made to dissolve in the mouth. Do not try to push the tablet through the foil backing. With dry hands, peel away the foil backing and gently remove the tablet. Place the tablet in the mouth and allow it to dissolve, then swallow. While you may take these tablets with water, it is not necessary to do so. Talk to your spray machine loader regarding the use of this medicine in children. Special care may be needed. What side effects may I notice from receiving this medicine? Side effects that you should report to your doctor or health team primary care physician as soon as possible: allergic reactions like skin rash, itching or hives, swelling of the face, lips, or tongue breathing problems dizziness fast or irregular heartbeat feeling faint or lightheaded, falls fever and chills swelling of the hands and feet tightness in the chest Side effects that usually do not require medical attention (report to your doctor or health team primary care physician if they continue or are bothersome): constipation or diarrhea headache What may interact with this medicine? Do not take this medicine with any of the following medications: -apomorphine -cisapride -dofetilide -dronedarone -pimozide -thioridazine -ziprasidone This medicine may also interact with the following medications: -carbamazepine -phenytoin -rifampicin -tramadol -other medicines that prolong the QT interval (cause an abnormal heart rhythm) What if I miss a dose? If you miss a dose, take it as soon as you can. If it is almost time for your next dose, take only that dose. Do not take double or extra doses. Where should I keep my medicine? Keep out of the reach of children. Store between 2 and 30 degrees C (36 and 86 degrees F). Throw away any unused medicine after the expiration date. What should I tell my health care provider before I take this medicine? They need to know if you have any of these conditions: heart disease history of irregular heartbeat liver disease low levels of magnesium or potassium in the blood an unusual or allergic reaction to ondansetron, granisetron, other medicines, foods, dyes, or preservatives or trying to get breast-feeding What should I watch for while using this medicine? Check with your doctor or health team primary care physician as soon as you can if you have any sign of an allergic reaction. Dicyclomine Hydrochloride Oral tablet What is this medicine? DICYCLOMINE (dye LIZBETHE dianne rogers) is used to treat bowel problems including irritable bowel syndrome. How should I use this medicine? Take this medicine by mouth with a glass of water. Follow the directions on the prescription label. It is best to take this medicine on an empty stomach, 30 minutes to 1 hour before meals. Take your medicine at regular intervals. Do not take your medicine more often than directed. Talk to your spray machine loader regarding the use of this medicine in children. Special care may be needed. While this drug may be prescribed for children as young as 6 months of age for selected conditions, precautions do apply. Patients over 65 years old may have a stronger reaction and need a smaller dose. What side effects may I notice from receiving this medicine? Side effects that you should report to your doctor or health team primary care physician as soon as possible: agitation, nervousness, confusion difficulty swallowing dizziness, drowsiness fast or slow heartbeat hallucinations pain or difficulty passing urine Side effects that usually do not require medical attention (report to your doctor or health team primary care physician if they continue or are bothersome): constipation headache nausea or vomiting sexual difficulty What may interact with this medicine? amantadine antacids benztropine digoxin disopyramide medicines for allergies, colds and breathing difficulties medicines for alzheimer's disease medicines for anxiety or sleeping problems medicines for depression or psychotic disturbances medicines for diarrhea medicines for pain metoclopramide tegaserod What if I miss a dose? If you miss a dose, take it as soon as you can. If it is almost time for your next dose, take only that dose. Do not take double or extra doses. Where should I keep my medicine? Keep out of the reach of children. Store at room temperature below 30 degrees C (86 degrees F). Protect from light. Throw away any unused medicine after the expiration date. What should I tell my health care provider before I take this medicine? They need to know if you have any of these conditions: difficulty passing urine esophagus problems or heartburn glaucoma heart disease, or previous heart attack myasthenia gravis prostate trouble stomach infection, or obstruction ulcerative colitis an unusual or allergic reaction to dicyclomine, other medicines, foods, dyes, or preservatives or trying to get breast-feeding What should I watch for while using this medicine? You may get drowsy, dizzy, or have blurred vision. Do not drive, use machinery, or do anything that needs mental alertness until you know how this medicine affects you. To reduce the risk of dizzy or fainting spells, do not sit or stand up quickly, especially if you are an older patient. Alcohol can make you more drowsy, avoid alcoholic drinks. Stay out of bright light and wear sunglasses if this medicine makes your eyes more sensitive to light. Avoid extreme heat (hot tubs, saunas). This medicine can cause you to sweat less than normal. Your body temperature could increase to dangerous levels, which may lead to heat stroke. Antacids can stop this medicine from working. If you get an upset stomach and want to take an antacid, make sure there is an interval of at least 1 to 2 hours before or after you take this medicine. Your mouth may get dry. Chewing sugarless gum or sucking hard candy, and drinking plenty of water may help. Contact your doctor if the problem does not go away or is severe. Pantoprazole Sodium Gastro-resistant tablet What is this medicine? PANTOPRAZOLE (becerra TOE pra zole) prevents the production of acid in the stomach. It is used to treat gastroesophageal reflux disease (GERD), inflammation of the esophagus, and Ramon-Moe syndrome. How should I use this medicine? Take this medicine by mouth. Swallow the tablets whole with a drink of water. Follow the directions on the prescription label. Do not crush, break, or chew. Take your medicine at regular intervals. Do not take your medicine more often than directed. Talk to your spray machine loader regarding the use of this medicine in children. While this drug may be prescribed for children as young as 5 years for selected conditions, precautions do apply. What side effects may I notice from receiving this medicine? Side effects that you should report to your doctor or health team primary care physician as soon as possible: allergic reactions like skin rash, itching or hives, swelling of the face, lips, or tongue bone, muscle or joint pain breathing problems chest pain or chest tightness dark yellow or brown urine dizziness fast, irregular heartbeat feeling faint or lightheaded fever or sore throat muscle spasm palpitations redness, blistering, peeling or loosening of the skin, including inside the mouth seizures tremors unusual bleeding or bruising unusually weak or tired yellowing of the eyes or skin Side effects that usually do not require medical attention (Report these to your doctor or health team primary care physician if they continue or are bothersome.): constipation diarrhea dry mouth headache nausea What may interact with this medicine? Do not take this medicine with any of the following medications: atazanavir nelfinavir This medicine may also interact with the following medications: ampicillin delavirdine digoxin diuretics iron salts medicines for fungal infections like ketoconazole, itraconazole and voriconazole warfarin What if I miss a dose? If you miss a dose, take it as soon as you can. If it is almost time for your next dose, take only that dose. Do not take double or extra doses. Where should I keep my medicine? Keep out of the reach of children. Store at room temperature between 15 and 30 degrees C (59 and 86 degrees F). Protect from light and moisture. Throw away any unused medicine after the expiration date. What should I tell my health care provider before I take this medicine? They need to know if you have any of these conditions: liver disease low levels of magnesium in the blood an unusual or allergic reaction to omeprazole, lansoprazole, pantoprazole, rabeprazole, other medicines, foods, dyes, or preservatives or trying to get breast-feeding What should I watch for while using this medicine? It can take several days before your stomach pain gets better. Check with your doctor or health team primary care physician if your condition does not start to get better, or if it gets worse. You may need blood work done while you are taking this medicine. You have been given the following additional information: Rectal Bleed, Stable Hemorrhoids Ondansetron Oral disintegrating tablet Dicyclomine Hydrochloride Oral tablet Pantoprazole Sodium Gastro-resistant tablet (Electronically signed by Cristina Grace A.R.N.P. 09/17/2016 16:09)
--- NOTE | 2016-09-17 21:11 | ED MED RECONCILIATION SUMMARY ---
Patient: EDNA FARRAR Medication Reconciliation Report [facility] VisitID: [id number] [address] [place] [address] 41y, F Registration Date/Time: 09/17/2016 Weight: 65.7 kg Height/Length: 68 in. BMI: 22.0 ALLERGIES: Codeine The patient's Home Medications are listed below: THE FOLLOWING MEDICATIONS NEED TO BE RECONCILED: Ambien Oral 5 mg, at bedtime ClonazePAM Oral (1 mg) 1 tablet, daily Gabapentin Oral (400 mg) 1 capsule, 4x a day Lamictal 200mg day TraZODone HCl Oral (100 mg) 1 tablet, daily Wellbutrin Oral 300mg day Zoloft Oral 25 mg, daily The source(s) of the original Home Medication information: patient The following Medications were given to the patient in the Emergency Department: Toradol [IVP] IVP 30 mg, administered: 09/17/2016 2:39:00 PM PROTONIX [IVP] IVP 40 mg, administered: 09/17/2016 3:21:00 PM The following Medications were prescribed to the patient: Zofran 4 mg: Take 1 orally every six hours as needed for nausea/vomiting. Dispense ten (10). No refills. Substitution is permissible. -- Cristina Grace A.R.N.P. Bentyl 20 mg tablets: take 1 orally every 6 hours as needed. Dispense thirty (30). No refills. Substitution is permissible. -- Cristina Grace A.R.N.P. Protonix 40 mg tablets: Take 1 tablet orally once daily. Dispense thirty (30). No refills. Substitution is permissible. -- Cristina Grace A.R.N.P.
--- NOTE | 2016-09-17 21:11 | ED MAR SUMMARY ---
..... Medication Administration Record [facility] [address] [place] [address] Patient: EDNA FARRAR Visit ID: [id number] 41y, F Weight: 65.7 kg Height/Length: 68 in BMI: 22 ALLERGIES: Codeine Given 14:39 09/17/2016 Opal Carranza R.N. Medication Administered: TORADOL [IVP], Dose: 30 mg IVP over 1 minute(s), Site: #1 right AC. Medication Ordered: Toradol IV 30 mg (NOW). Given 15:21 09/17/2016 Opal Carranza RZhaneN. Medication Administered: PROTONIX [IVP] (PANTOPRAZOLE SODIUM), Dose: 40 mg IVP over 2 minute(s), Site: #1 right AC. Medication Ordered: Protonix IVP 40mg 40 mg (Mix in NS 10ml over 2min).
--- NOTE | 2016-09-17 21:11 | ED MED RECONCILIATION SUMMARY ---
Patient: EDNA FARRAR Medication Reconciliation Report [facility] VisitID: [id number] [address] [place] [address] 41y, F Registration Date/Time: 09/17/2016 Weight: 65.7 kg Height/Length: 68 in. BMI: 22.0 ALLERGIES: Codeine The patient's Home Medications are listed below: THE FOLLOWING MEDICATIONS NEED TO BE RECONCILED: Ambien Oral 5 mg, at bedtime ClonazePAM Oral (1 mg) 1 tablet, daily Gabapentin Oral (400 mg) 1 capsule, 4x a day Lamictal 200mg day TraZODone HCl Oral (100 mg) 1 tablet, daily Wellbutrin Oral 300mg day Zoloft Oral 25 mg, daily The source(s) of the original Home Medication information: patient The following Medications were given to the patient in the Emergency Department: Toradol [IVP] IVP 30 mg, administered: 09/17/2016 2:39:00 PM PROTONIX [IVP] IVP 40 mg, administered: 09/17/2016 3:21:00 PM The following Medications were prescribed to the patient: Zofran 4 mg: Take 1 orally every six hours as needed for nausea/vomiting. Dispense ten (10). No refills. Substitution is permissible. -- Cristina Grace A.R.N.P. Bentyl 20 mg tablets: take 1 orally every 6 hours as needed. Dispense thirty (30). No refills. Substitution is permissible. -- Cristina Grace A.R.N.P. Protonix 40 mg tablets: Take 1 tablet orally once daily. Dispense thirty (30). No refills. Substitution is permissible. -- Cristina Grace A.R.N.P.
--- NOTE | 2016-09-17 21:11 | ED DISCHARGE INSTRUCTIONS ---
Patient: EDNA FARRAR General Instructions [facility] VisitID: [id number] [address] [place] [address] 41y, F Registration Date/Time: 09/17/2016 Rectal bleed consisting of bright red blood. INSTRUCTIONS Warnings: GENERAL WARNINGS: Return or contact your physician immediately if your condition worsens or changes unexpectedly, if not improving as expected, or if other problems arise. Specifically return if problem worsens. Prescription Medications: Zofran 4 mg: Take 1 orally every six hours as needed for nausea/vomiting. Dispense ten (10). No refills. Substitution is permissible. Bentyl 20 mg tablets: take 1 orally every 6 hours as needed. Dispense thirty (30). No refills. Substitution is permissible. Protonix 40 mg tablets: Take 1 tablet orally once daily. Dispense thirty (30). No refills. Substitution is permissible. Follow-up: Follow up with your doctor in about two days even if well. Call for an appointment. Summary of care provided to patient. Understanding of the discharge instructions verbalized by patient. Follow-up with: Goldy White MD, [facility], , [address], [place], [id number] Follow up in about two days as needed. Call for an appointment. Summary of care provided to patient. ADDITIONAL INFORMATION Rectal Bleeding (Stable) Your exam today shows signs of blood in the stool. This is called rectal bleeding, because the blood passes through the rectum. However, the blood may not be coming from the rectum. Blood in the stool may be red or black in color. Red blood in the stool usually comes from the lower gastro-intestinal (GI) tract. This may be due to diverticulosis, polyps, colon inflammation or infection, anal fissure or hemorrhoids. In persons over 50 tumors and cancer of the intestinal tract may first show up as red blood in the stool. Upper GI bleeding causes the stool to turn black. This may occur with bleeding from the esophagus, stomach, duodenum or small intestine. Very small amounts of GI bleeding may not be visible and can only be discovered on a chemical test of the stool. You have not lost a large amount of blood and your condition appears stable at this time. It is very important to have a follow-up exam to determine the exact cause of your bleeding. Home Care: 1) You may resume normal activity as long as you feel well. 2) Avoid aspirin and anti-inflammatory drugs such as ibuprofen (Advil, Motrin) and naproxen (Aleve and Naprosyn). You may use acetaminophen (Tylenol) for pain. [ NOTE : If you have chronic liver disease, talk with your doctor before using acetaminophen.] 3) Avoid alcohol. Follow Up with your doctor or as advised by our medical staff. It is very important that you have further tests done to find the cause of your bleeding. Get Prompt Medical Attention if any of the following occur: -- Large amount of rectal bleeding (more than 1 cup of blood in 24 hours) -- Increasing abdominal pain -- Weakness, dizziness or fainting -- Vomiting blood (red or black color) Hemorrhoids,External A hemorrhoid is a local swelling of the veins around the rectum. These most often occur from repeated forceful straining during bowel movements or heavy lifting. It may also occur in the last few months of . A hemorrhoid feels like a soft lump. It may itch from time to time. When it is inflamed it becomes hard and very painful. Home Care: SITZ BATHS: Sit in a tub filled with about 6 inches of hot water. Allow the water to run in order to keep it hot for a total of 10-15 minutes. Repeat this three times a day until pain is relieved. Keep your stools soft to avoid the need to strain when having a bowel movement. Unless another medicine was prescribed, try the following: IF YOU ARE CONSTIPATED: You may use [id number]-[id number] laxatives such as MILK OF MAGNESIA (mild acting) or, DULCOLAX (if stronger action is needed). IF YOU ARE NOT CONSTIPATED but stools are hard, try taking Colace (docusate sodium) which is a stool softener. This will soften stools without producing diarrhea. Drinking extra fluids may also help. The use of creams applied to the hemorrhoid itself, such as ANUSOL or PREPARATION H, will be helpful to reduce pain and itching, and speed healing. Prevention: Avoid straining on the toilet by keeping stools soft. Increasing FIBER in your diet (fruits, cereals, vegetables and grains) will promote healthy bowel movement. If this is not working, you may use METAMUCIL and similar products. These are jfwi-[id number] fiber supplements. You must drink extra fluids when taking these to avoid constipation. Follow Up with your doctor if you do not begin to respond to the above treatment within the next few days. Get Prompt Medical Attention if any of the following occur: Large amount of rectal bleeding (more than 1 cup of blood in 24 hours) Increasing rectal pain or rectal pain that continues for more than three days of treatment Weakness, dizziness or fainting Vomiting blood (red or black color) Ondansetron Oral disintegrating tablet What is this medicine? ONDANSETRON (on ADIN se sara) is used to treat nausea and vomiting caused by chemotherapy. It is also used to prevent or treat nausea and vomiting after surgery. How should I use this medicine? These tablets are made to dissolve in the mouth. Do not try to push the tablet through the foil backing. With dry hands, peel away the foil backing and gently remove the tablet. Place the tablet in the mouth and allow it to dissolve, then swallow. While you may take these tablets with water, it is not necessary to do so. Talk to your acoustical carpenter regarding the use of this medicine in children. Special care may be needed. What side effects may I notice from receiving this medicine? Side effects that you should report to your doctor or health rn wound care as soon as possible: allergic reactions like skin rash, itching or hives, swelling of the face, lips, or tongue breathing problems dizziness fast or irregular heartbeat feeling faint or lightheaded, falls fever and chills swelling of the hands and feet tightness in the chest Side effects that usually do not require medical attention (report to your doctor or health rn wound care if they continue or are bothersome): constipation or diarrhea headache What may interact with this medicine? Do not take this medicine with any of the following medications: -apomorphine -cisapride -dofetilide -dronedarone -pimozide -thioridazine -ziprasidone This medicine may also interact with the following medications: -carbamazepine -phenytoin -rifampicin -tramadol -other medicines that prolong the QT interval (cause an abnormal heart rhythm) What if I miss a dose? If you miss a dose, take it as soon as you can. If it is almost time for your next dose, take only that dose. Do not take double or extra doses. Where should I keep my medicine? Keep out of the reach of children. Store between 2 and 30 degrees C (36 and 86 degrees F). Throw away any unused medicine after the expiration date. What should I tell my health care provider before I take this medicine? They need to know if you have any of these conditions: heart disease history of irregular heartbeat liver disease low levels of magnesium or potassium in the blood an unusual or allergic reaction to ondansetron, granisetron, other medicines, foods, dyes, or preservatives or trying to get breast-feeding What should I watch for while using this medicine? Check with your doctor or health rn wound care as soon as you can if you have any sign of an allergic reaction. Dicyclomine Hydrochloride Oral tablet What is this medicine? DICYCLOMINE (dye LIZBETHE dianne rogers) is used to treat bowel problems including irritable bowel syndrome. How should I use this medicine? Take this medicine by mouth with a glass of water. Follow the directions on the prescription label. It is best to take this medicine on an empty stomach, 30 minutes to 1 hour before meals. Take your medicine at regular intervals. Do not take your medicine more often than directed. Talk to your acoustical carpenter regarding the use of this medicine in children. Special care may be needed. While this drug may be prescribed for children as young as 6 months of age for selected conditions, precautions do apply. Patients over 65 years old may have a stronger reaction and need a smaller dose. What side effects may I notice from receiving this medicine? Side effects that you should report to your doctor or health rn wound care as soon as possible: agitation, nervousness, confusion difficulty swallowing dizziness, drowsiness fast or slow heartbeat hallucinations pain or difficulty passing urine Side effects that usually do not require medical attention (report to your doctor or health rn wound care if they continue or are bothersome): constipation headache nausea or vomiting sexual difficulty What may interact with this medicine? amantadine antacids benztropine digoxin disopyramide medicines for allergies, colds and breathing difficulties medicines for alzheimer's disease medicines for anxiety or sleeping problems medicines for depression or psychotic disturbances medicines for diarrhea medicines for pain metoclopramide tegaserod What if I miss a dose? If you miss a dose, take it as soon as you can. If it is almost time for your next dose, take only that dose. Do not take double or extra doses. Where should I keep my medicine? Keep out of the reach of children. Store at room temperature below 30 degrees C (86 degrees F). Protect from light. Throw away any unused medicine after the expiration date. What should I tell my health care provider before I take this medicine? They need to know if you have any of these conditions: difficulty passing urine esophagus problems or heartburn glaucoma heart disease, or previous heart attack myasthenia gravis prostate trouble stomach infection, or obstruction ulcerative colitis an unusual or allergic reaction to dicyclomine, other medicines, foods, dyes, or preservatives or trying to get breast-feeding What should I watch for while using this medicine? You may get drowsy, dizzy, or have blurred vision. Do not drive, use machinery, or do anything that needs mental alertness until you know how this medicine affects you. To reduce the risk of dizzy or fainting spells, do not sit or stand up quickly, especially if you are an older patient. Alcohol can make you more drowsy, avoid alcoholic drinks. Stay out of bright light and wear sunglasses if this medicine makes your eyes more sensitive to light. Avoid extreme heat (hot tubs, saunas). This medicine can cause you to sweat less than normal. Your body temperature could increase to dangerous levels, which may lead to heat stroke. Antacids can stop this medicine from working. If you get an upset stomach and want to take an antacid, make sure there is an interval of at least 1 to 2 hours before or after you take this medicine. Your mouth may get dry. Chewing sugarless gum or sucking hard candy, and drinking plenty of water may help. Contact your doctor if the problem does not go away or is severe. Pantoprazole Sodium Gastro-resistant tablet What is this medicine? PANTOPRAZOLE (becerra TOE pra zole) prevents the production of acid in the stomach. It is used to treat gastroesophageal reflux disease (GERD), inflammation of the esophagus, and Ramon-Moe syndrome. How should I use this medicine? Take this medicine by mouth. Swallow the tablets whole with a drink of water. Follow the directions on the prescription label. Do not crush, break, or chew. Take your medicine at regular intervals. Do not take your medicine more often than directed. Talk to your acoustical carpenter regarding the use of this medicine in children. While this drug may be prescribed for children as young as 5 years for selected conditions, precautions do apply. What side effects may I notice from receiving this medicine? Side effects that you should report to your doctor or health rn wound care as soon as possible: allergic reactions like skin rash, itching or hives, swelling of the face, lips, or tongue bone, muscle or joint pain breathing problems chest pain or chest tightness dark yellow or brown urine dizziness fast, irregular heartbeat feeling faint or lightheaded fever or sore throat muscle spasm palpitations redness, blistering, peeling or loosening of the skin, including inside the mouth seizures tremors unusual bleeding or bruising unusually weak or tired yellowing of the eyes or skin Side effects that usually do not require medical attention (Report these to your doctor or health rn wound care if they continue or are bothersome.): constipation diarrhea dry mouth headache nausea What may interact with this medicine? Do not take this medicine with any of the following medications: atazanavir nelfinavir This medicine may also interact with the following medications: ampicillin delavirdine digoxin diuretics iron salts medicines for fungal infections like ketoconazole, itraconazole and voriconazole warfarin What if I miss a dose? If you miss a dose, take it as soon as you can. If it is almost time for your next dose, take only that dose. Do not take double or extra doses. Where should I keep my medicine? Keep out of the reach of children. Store at room temperature between 15 and 30 degrees C (59 and 86 degrees F). Protect from light and moisture. Throw away any unused medicine after the expiration date. What should I tell my health care provider before I take this medicine? They need to know if you have any of these conditions: liver disease low levels of magnesium in the blood an unusual or allergic reaction to omeprazole, lansoprazole, pantoprazole, rabeprazole, other medicines, foods, dyes, or preservatives or trying to get breast-feeding What should I watch for while using this medicine? It can take several days before your stomach pain gets better. Check with your doctor or health rn wound care if your condition does not start to get better, or if it gets worse. You may need blood work done while you are taking this medicine. You have been given the following additional information: Rectal Bleed, Stable Hemorrhoids Ondansetron Oral disintegrating tablet Dicyclomine Hydrochloride Oral tablet Pantoprazole Sodium Gastro-resistant tablet (Electronically signed by Cristina Grace A.R.N.P. 09/17/2016 16:09)
--- NOTE | 2016-09-17 21:11 | ED MAR SUMMARY ---
..... Medication Administration Record [facility] [address] [place] [address] Patient: EDNA FARRAR Visit ID: [id number] 41y, F Weight: 65.7 kg Height/Length: 68 in BMI: 22 ALLERGIES: Codeine Given 14:39 09/17/2016 Opal Carranza R.N. Medication Administered: TORADOL [IVP], Dose: 30 mg IVP over 1 minute(s), Site: #1 right AC. Medication Ordered: Toradol IV 30 mg (NOW). Given 15:21 09/17/2016 Opal Carranza RZhaneN. Medication Administered: PROTONIX [IVP] (PANTOPRAZOLE SODIUM), Dose: 40 mg IVP over 2 minute(s), Site: #1 right AC. Medication Ordered: Protonix IVP 40mg 40 mg (Mix in NS 10ml over 2min).
== END 2016-09-17 15:50 | disposition home or self-care (01) ==
LOC: ED SRH 13:34
DX: K62.5 Hemorrhage of anus and rectum (principal); F17.210 Nicotine dependence, cigarettes, uncomplicated; Z79.899 Other long term (current) drug therapy; Z88.5 Allergy status to narcotic agent
CPT/HCPCS: 90004; 90100; 92235; 92530; 95059